=== PATIENT | female | born 1960 | race Caucasian/White ===

== ENCOUNTER 2017-11-30 13:00 | Inpatient (IN) ==
[2017-11-30 15:50] LABS: Appearance,Urine CLEAR; Bacteria,Urine 0 /hpf (0); Bilirubin,Urine NEG (NEG); Color,Urine STRAW; Glucose,Urine (UA) NEGATIVE (NEG); Leukocyte Esterase,Urine NEG /uL (NEG); Mucus,Urine FEW /hpf (0); Protein,Urine NEG (NEG); Specific Gravity,Urine 1.014 (1.000-1.035); Urine Amorphous Crystals FEW /hpf (0); Urine Blood 0.2 mg/dL (<0.03); Urine RBC 1 /hpf (0-1); Urine Squamous Epithelial Cell < 1 /hpf (0-4); Urine WBC 0 /hpf (0-4); Urobilinogen,Urine NEG (NEG)
[2017-11-30 17:19] LABS: Blood Urea Nitrogen 15 mg/dl (6-20)
[2017-11-30 17:40] LABS: Basophils # (Auto) 0 K/mcL (0.0-0.3); Basophils % (Auto) 0.8 % (0.0-2.0); Eosinophils # (Auto) 0.2 K/mcL (0.0-0.7); Granulocytes % (Auto) 54.2 % (38.0-78.0); Lymphocytes % (Auto) 36.2 % (15.5-49.0); Mean Cell Volume 84.8 fL (80.0-100.0); Monocytes # (Auto) 0.3 K/mcL (0.1-0.9); Monocytes % (Auto) 5.8 % (1.0-12.0); Platelet Count 247 K/mcL (140-440); RBC 4.71 M/mcL (4.00-5.20); Red Cell Distribution Width 15.1 % (11.5-14.5)
[2017-12-03] MEDS ORDERED: 0.9 % SODIUM CHLORIDE 9 ML, KETOROLAC 30 MG, ROPIVACAINE HCL/PF 49.5 ML, EPINEPHrine 0.... IJ SCH (07:00)
[2017-12-03] MEDS ORDERED: ceFAZolin 1 GM VIAL IV SCH (07:00)
[2017-12-03] MEDS ORDERED: PROPOFOL 200 MG/20 ML VIAL IV ONE (11:08)
[2017-12-03] MEDS ORDERED: ROPIVACAINE HCL/PF 20 ML VIAL IJ ONE (11:08)
[2017-12-03] MEDS ORDERED: KETAMINE 100 MG/ML ML IV ONE (11:08)
[2017-12-03] MEDS ORDERED: DEXAMETHASONE 10 MG/ML VIAL IV ONE (11:08)
[2017-12-03] MEDS ORDERED: ONDANSETRON 4 MG/2 ML VIAL IV ONE (11:08)
[2017-12-03] MEDS ORDERED: fentaNYL 250 MCG/5 ML VIAL IV ONE (11:08)
[2017-12-03] MEDS ORDERED: MIDAZOLAM 5 MG/5 ML VIAL IV ONE (11:08)
[2017-12-03] MEDS ORDERED: TRANEXAMIC ACID 1,000 MG/10 ML VIAL IV ONE (11:08)
[2017-12-03] MEDS ORDERED: LIDOCAINE HCL/PF 100 MG/5 ML SYRINGE IV ONE (11:08)
[2017-12-03] MEDS ORDERED: BISACODYL 10 MG SUPP.RECT PR PRN (12:47)
[2017-12-03] MEDS ORDERED: ONDANSETRON 4 MG/2 ML VIAL IV PRN ×2 (12:47→12:49)
[2017-12-03] MEDS ORDERED: POLYETHYLENE GLYCOL 3350 17 GM PACKET PO PRN (12:47)
[2017-12-03] MEDS ORDERED: TRANEXAMIC ACID 1,000 MG/10 ML VIAL IV SCH (12:47)
[2017-12-03] MEDS ORDERED: MAGNESIUM HYDROXIDE 30 ML ORAL.SUSP PO PRN (12:47)
[2017-12-03] MEDS ORDERED: FLEETS ADULT ENEMA PR PRN (12:47)
[2017-12-03] MEDS ORDERED: BENZOCAINE/MENTHOL 1 LOZENGE PO PRN (12:47)
[2017-12-03] MEDS ORDERED: ATROPINE SULFATE 0.4 MG/ML VIAL IV PRN (12:49)
[2017-12-03] MEDS ORDERED: IPRATROPIUM/ALBUTEROL 3 ML AMPUL.NEB NEB PRN ×2 (12:49→13:58)
[2017-12-03] MEDS ORDERED: NALOXONE HCL 0.4 MG/ML VIAL IV PRN (12:49)
[2017-12-03] MEDS ORDERED: ACETAMINOPHEN 1,000 MG/100 ML BOTTLE IV ONE (12:49)
[2017-12-03] MEDS ORDERED: METOPROLOL TARTRATE 5 MG/5 ML VIAL IV PRN (12:49)
[2017-12-03] MEDS ORDERED: diphenhydrAMINE 50 MG/ML VIAL IV PRN (12:49)
[2017-12-03] MEDS ORDERED: METHOCARBAMOL 1,000 MG/10 ML VIAL IV PRN (12:49)
[2017-12-03] MEDS ORDERED: ePHEDrine 50 MG/ML AMPUL IV PRN (12:49)
[2017-12-03] MEDS ORDERED: FLUMAZENIL 0.1 MG/ML ML IV PRN (12:49)
[2017-12-03] MEDS ORDERED: HYDROmorphone 2 MG/ML VIAL IV PRN ×2 (12:49→16:19)
[2017-12-03] MEDS ORDERED: PROMETHAZINE 25 MG/ML VIAL IV PRN (12:49)
[2017-12-03] MEDS ORDERED: LORazepam 1 MG TABLET PO PRN (12:52)
--- NOTE | 2017-12-03 12:59 | Brief Operative Note ---
Date of procedure: 12/03/17 Pre-op diagnosis: DJD right knee Eliceo Post-op diagnosis: same Procedure: R TKR ELICEO Grafts/Implants: Yes (triathlon knee) Anesthesia: GETA Findings: DJD right knee Complications: none Surgeon: Arturo Navarrete Binding Nicker: Gabriel Trevizo Estimated blood loss (cc): 100 Tourniquet Time (Minutes): 73 Specimens Removed/Pathology: none sent Condition: stable Disposition: PACU
[2017-12-03] MEDS ORDERED: LACTATED RINGERS 1,000 ML IV SCH (13:00)
[2017-12-03] MEDS ORDERED: GENTAMICIN SULFATE 800 MG/20 ML VIAL IR ONE (13:10)
[2017-12-03] MEDS: MEPERIDINE 25 MG/ML SYRINGE IV PRN ×2 (13:20→13:32)
[2017-12-03] MEDS: fentaNYL 100 MCG/2 ML VIAL IV PRN ×4 (13:35→13:54)
[2017-12-03] MEDS ORDERED: PROMETHAZINE 25 MG/ML VIAL IM PRN (13:58)
[2017-12-03] MEDS ORDERED: MEPERIDINE 50 MG/ML INJECTION IM PRN (13:58)
[2017-12-03] MEDS ORDERED: PROMETHAZINE 25 MG/ML VIAL ONE (14:07)
[2017-12-03] MEDS ORDERED: MEPERIDINE 50 MG/ML INJECTION ONE (14:07)
--- NOTE | 2017-12-03 14:39 | Operative Note ---
DATE OF OPERATION: 12/03/2017 PREOPERATIVE DIAGNOSIS: Degenerative joint disease of the right knee. POSTOPERATIVE DIAGNOSIS: Degenerative joint disease of the right knee. OPERATION: Right Eliceo total knee replacement (Triathlon). SURGEON: Arturo Navarrete MD ANALYZER SALES: Gabriel Trevizo PA-C ANESTHESIA: General done by Amando David CRNA. TOURNIQUET TIME: 73 minutes. ESTIMATED BLOOD LOSS: 100 mL SUMMARY OF PROCEDURE: General anesthesia was attained. The right leg was prepped and draped. A thigh-level tourniquet was put up. A midline incision was made from the quadriceps to the tibial tubercle. It was taken down to the muscle retinacular layer. A mid vastus approach was used. An oblique incision was made in the vastus for about an inch and then taking into the quadriceps about 2 fingerbreadths above the patella. This incision was then taken down into the quadriceps and around the medial retinaculum down to the medial aspect of the patellar tendon. The incision was deepened down to the level of the joints. A release was done of the medial soft tissues using a Fink. The anterior menisci were resected. The ACL was released. The patella was mobilized laterally. The two arrays were placed. Two stab incisions were made and the anteromedial femur four fingerbreadths above the patella. Blunt dissection was used to get down to the bone. The two array drill holes were made through the anterior cortex and partly in the posterior cortex and the 2 pins placed. The array was placed proximally. Distally, two stab incisions were made 15 mm apart, the 3.2 mm drill bit and the pins were placed. The distal array was placed as well. The robot was then used to locate the hip by rotating through the femoral head with the leg bent. The two reference pins were then placed, one into the femur and one into the tibia. A probe was then used to locate 40 points on the femur and then on the tibia. Using the robot guidance, the anterior, posterior and bevel cuts were made in the femur and the proximal cut was made in the tibia. At this point, the robot was removed. The femur size the robot prior to making the cuts was used to balance the knee in flexion and extension. The anterior, posterior, bevel cuts were made as noted above. The femur sized to a 2. This tibia sized to a 2 as well. The tibia was prepared for implantation by reaming and then broaching the tibial canal. The best combination of a full range of motion with stability was with an 11 mm polyethylene thickness. A congruent, but posterior cruciate retaining insert was used. The patella was everted. Its depth was 20 mm. It measured and resection was down to 12 mm. A 32 size patella covered the remaining bone well with minimal lateral bone prominence. The extra bone was resected. The bone surfaces were copiously irrigated. The knee was infiltrated throughout with a standard multimodal incision from the pharmacy for postoperative analgesia. The bone surfaces were vigorously irrigated and then dried. The components were cemented in. Excess cement was removed. No touch test showed a lateral release was indicated and therefore this was done with the Bovie. The tourniquet was let down. All bleeding points were coagulated. The vastus medialis and quadriceps as well as the medial retinaculum were closed with buried and mattress sutures of #2 FiberWire. The superficial closure was then done with a running locking Maxon. The subcutaneous tissue was closed with interrupted buried 2-0 Monocryl. The skin was closed with mik. A sterile compressive dressing was applied. The sponge and needle count was correct. The patient tolerated the procedure well and was taken to the recovery room in stable condition. TJF:[id number] Job ID: [id number] Doc ID: [id number] Arturo Navarrete MD
[2017-12-03] MEDS: 0.9 % SODIUM CHLORIDE 1,000 ML IV SCH (15:01)
[2017-12-03] MEDS: 0.9 % SODIUM CHLORIDE 10 ML SYRINGE IV SCH ×2 (15:03→21:54)
[2017-12-03] MEDS: GABAPENTIN 300 MG CAPSULE PO SCH ×2 (15:11→21:17)
[2017-12-03] MEDS: hydrOXYzine 25 MG TABLET PO SCH ×2 (15:11→21:18)
--- NOTE | 2017-12-03 15:16 | XRay Report ---
CLINICAL INFORMATION: Post-op total knee. COMPARISON: None. FINDINGS: Total knee prostheses is anatomically aligned. No osseous abnormality. Diffuse soft tissue swelling seen as expected IMPRESSION: Negative Interpreted and Authenticated by: Han Yee 12/03/17
[2017-12-03] MEDS: HYDROcodone/APAP 10/325MG TABLET PO PRN ×2 (16:03→21:18)
[2017-12-03] MEDS: ceFAZolin 1 GM VIAL IV SCH (18:56)
[2017-12-03] MEDS ORDERED: QUEtiapine 100 MG TABLET PO SCH (21:00)
[2017-12-03] MEDS ORDERED: SENNOSIDES 1 TABLET PO SCH (21:00)
[2017-12-03] MEDS: ASPIRIN 325 MG ENTERIC COATED TABLET PO SCH (21:17)
[2017-12-03] MEDS: oxyCODONE 10 MG TAB.ER.12H PO SCH (21:17)
[2017-12-03] MEDS: DOCUSATE SODIUM 100 MG CAPSULE PO SCH (21:18)
[2017-12-04] MEDS: 0.9 % SODIUM CHLORIDE 1,000 ML IV SCH ×2 (01:09→09:06)
[2017-12-04] MEDS: HYDROcodone/APAP 10/325MG TABLET PO PRN ×2 (01:27→05:41)
[2017-12-04] MEDS: ceFAZolin 1 GM VIAL IV SCH (02:17)
[2017-12-04] MEDS: 0.9 % SODIUM CHLORIDE 10 ML SYRINGE IV SCH (06:00)
[2017-12-04 07:04] LABS: Basophils # (Auto) 0 K/mcL (0.0-0.3); Basophils % (Auto) 0 % (0.0-2.0); Eosinophils # (Auto) 0 K/mcL (0.0-0.7); Eosinophils % (Auto) 0 % (0.0-7.0); Granulocytes % (Auto) 90.7 % (38.0-78.0); Lymphocytes # (Auto) 0.9 K/mcL (1.5-4.8); Lymphocytes % (Auto) 6.1 % (15.5-49.0); Mean Cell Volume 85.1 fL (80.0-100.0); Mean Corpuscular HGB Conc 32.6 g/dL (31.0-36.0); Mean Corpuscular Hemoglobin 27.8 pg (26.0-34.0); Monocytes # (Auto) 0.5 K/mcL (0.1-0.9); Monocytes % (Auto) 3.2 % (1.0-12.0); Platelet Count 234 K/mcL (140-440); RBC 3.59 M/mcL (4.00-5.20); Red Cell Distribution Width 15.2 % (11.5-14.5)
[2017-12-04] MEDS ORDERED: OMEPRAZOLE 20 MG CAPSULE PO SCH (07:30)
--- NOTE | 2017-12-04 07:57 | Discharge Summary ---
Providers - Providers Patient information: Note initiated : 12/04/17 at 7:55 am Service Date, if different from initiated Date: [] Patient: Valerie Garay 57 y/o F admitted on 12/03/17 for Right Total Knee Arthroplasty Eliceo. Chief Complaint: [] Date of admission: 12/03/17 Discharge date: 12/04/17 Attending physician: Arturo Navarrete Hospitalization Hospital course: stayed one day, no complications pain contro;;ed. Will go home on home PT Discharge diagnosis: Total knee replacement right Procedures: r TKR 12/03 Complications: None Exam - Exam Clean and dry: Yes Weight bearing status: full Ortho Discharge - TKA - Patient Instructions Diet: Regular Diet Total Knee Protocol: For Total Knee: Start ROM JOSUE with stationary bike or rocking chair. Work on gaining full extension of knee. Posterior dislocation precautions provided. Hip abductor strengthening and gait training instructions provided. Apply Cryocuff as instructed. - Follow Up Plan Disposition: Home, Self-Care Prognosis: Good Rehab Potential: Good I certify that the patient requires SNF services: No - Orders For Discharge Prescriptions: oxyCODONE HCL [Roxicodone] 10 mg PO Q6HP PRN #50 tablet PRN Reason: Pain Pending Studies Resuscitation Status Full Code Diet Regular Diet Start Ange Oct 1531 Aspirin (Ecotrin) 325 mg PO BID [facility] Last Admin: 12/03/17 21:17 Dose: 325 mg Docusate Sodium (Colace) 100 mg PO BID [facility] Last Admin: 12/03/17 21:18 Dose: 100 mg Gabapentin (Neurontin) 300 mg PO TID [facility] Last Admin: 12/03/17 21:17 Dose: 300 mg Admin: 12/03/17 15:11 Dose: 300 mg Hydromorphone HCl (Dilaudid) 0.5 - 2 mg IV Q2HP PRN PRN Reason: PAIN LEVEL > 6 Last Admin: 12/03/17 17:56 Dose: 0.5 mg Hydroxyzine HCl (Atarax) 50 mg PO TID [facility] Last Admin: 12/03/17 21:18 Dose: 50 mg Admin: 12/03/17 15:11 Dose: 50 mg Sodium Chloride (Sodium Chloride 0.9%) 1,000 mls @ 100 mls/hr IV .Q10H [facility] Last Admin: 12/04/17 01:09 Dose: 100 mls/hr Infusion: 12/04/17 01:01 Dose: 100 mls/hr Admin: 12/03/17 15:01 Dose: 100 mls/hr Lorazepam (Ativan) 1 - 2 mg PO DAILYP PRN PRN Reason: Anxiety Last Admin: 12/04/17 05:41 Dose: 1 mg Omeprazole (Prilosec) 40 mg PO ACB [facility] Last Admin: 12/04/17 06:55 Dose: 40 mg Oxycodone HCl (Oxycontin) 10 mg PO BID [facility] Stop: 12/04/17 21:01 Last Admin: 12/03/17 21:17 Dose: 10 mg Quetiapine Fumarate (Seroquel) 100 mg PO HS [facility] Last Admin: 12/03/17 21:17 Dose: 100 mg Senna (Senokot) 2 tab PO HS [facility] Last Admin: 12/03/17 21:18 Dose: 2 tab Sodium Chloride (Saline Flush) 10 ml IV Q8 [facility] Last Admin: 12/04/17 06:00 Dose: Not Given Admin: 12/03/17 21:54 Dose: Not Given Admin: 12/03/17 15:03 Dose: Not Given Shift Summary 12/04/17 04:38 Shift Summary by Yaya Whyte Addendum entered by Yaya Whyte 12/04/17 04:42: VS - WNL on R.A. - SPO2 has been low when asleep - O2 @ 2L PRN. She is A&O x4, calm, pleasant, & cooperative. Original Note: Pt rather somnolent early in the emelia. She has rested rather well tonight. Pt up AMB to & from BR - gait mod unsteady when up w/ FWW - CGA for safety. Voiding QS - PVR scan was 35ml @ 2135. RT knee nevaeh showing sm area shadow - otherwise dry & intact. Pt has declined cryo-cuff 2nd to the weight causing increased pain. CPM currently on @ 0-40 degrees. She has Hx back pain. Knee & back pain mod well controlled - last [place] 10 (2) PO given @ 0130 - Initialized on 12/04/17 04:38 - END OF NOTE
[2017-12-04] MEDS ORDERED: PARoxetine 20 MG TABLET PO SCH (09:00)
[2017-12-04] MEDS: GABAPENTIN 300 MG CAPSULE PO SCH (09:03)
[2017-12-04] MEDS: oxyCODONE 10 MG TAB.ER.12H PO SCH (09:04)
[2017-12-04] MEDS: hydrOXYzine 25 MG TABLET PO SCH (09:04)
[2017-12-04] MEDS: DOCUSATE SODIUM 100 MG CAPSULE PO SCH (09:04)
[2017-12-04] MEDS: oxyCODONE HCL 5 MG TABLET PO PRN ×2 (09:05→10:31)
[2017-12-04] MEDS: ASPIRIN 325 MG ENTERIC COATED TABLET PO SCH (09:06)
== END 2017-12-04 10:55 | disposition home or self-care (01) | DRG 470 ==
LOC: MEDSUR 12-03 08:20
PROVIDERS: ADMIT Orthopaedic Surgery Foot and Ankle Surgery; ATTEND Orthopaedic Surgery Foot and Ankle Surgery
CPT/HCPCS: 62322; 97161; C1713; C1776; J0131; J0171; J0690; J1100; J1170; J1580; J1885; J2001; J2175; J2250; J2405; J2550; J2795; J2800; J3010; J7030; J7050; J7120; J7620; J7620-GY

== ENCOUNTER 2017-12-31 09:14 | Observation (INO) ==
[2017-12-31] MEDS ORDERED: ACETAMINOPHEN 325 MG TABLET PO ONE (10:14)
[2017-12-31] MEDS ORDERED: ONDANSETRON 4 MG/2 ML VIAL IV ONE (10:14)
[2017-12-31] MEDS ORDERED: LACTATED RINGERS 1,000 ML IV ONE (10:14)
--- NOTE | 2017-12-31 10:16 | XRay Report ---
CLINICAL INFORMATION: Cough and fever COMPARISON: 08/04/2016 FINDINGS: Moderate cardiomegaly is unchanged. Mediastinum and pulmonary vessels are normal. Moderate patchy infiltrate in the right mid/lower lung has developed. Minimal patchy left lower lung. IMPRESSION: Moderate patchy infiltrate right mid and lower lung with small patchy infiltrate left lower lung. Moderate stable cardiomegaly - no evidence CHF Interpreted and Authenticated by: Han Yee 12/31/17
--- NOTE | 2017-12-31 10:17 | Emergency Department Note ---
General Adult HPI - General Chief complaint: Fever Stated complaint: Knee pain, fever Time Seen by Provider: 12/31/17 10:06 Source: EMS Mode of arrival: EMS Limitations: no limitations - History of Present Illness HPI Narrative: This patient began having pain and swelling in her right knee which underwent a total knee replacement [address] Navarrete. The symptoms started last evening. She also has a fever and cough with slight head congestion. - Related Data Home Medications Medication Instructions Recorded Confirmed LORazepam [Ativan] 1 - 2 mg PO DAILYP PRN 11/30/17 12/03/17 Omeprazole [PriLOSEC] 40 mg PO ACB 11/30/17 12/03/17 PARoxetine HCL [Paxil] 40 mg PO DAILY 11/30/17 12/03/17 QUEtiapine [SEROquel] 100 mg PO HS 11/30/17 12/03/17 hydrOXYzine HCL [Hydroxyzine HCl] 50 mg PO TID 11/30/17 12/03/17 Previous Rx's Medication Instructions Recorded gabapentin 300 mg capsule 300 mg PO TID #90 cap 05/22/16 Aspirin 81 mg PO BID #60 tab.chew 12/04/17 oxyCODONE HCL [Roxicodone] 10 mg PO Q6HP PRN #50 tablet 12/04/17 HYDROmorphone HCL [Dilaudid] 4 mg PO Q8HP PRN #20 tab 12/07/17 Allergies Allergy/AdvReac Type Severity Reaction Status Date / Time aspirin AdvReac Mild Gastrointestinal Verified 12/31/17 09:14 Upset ibuprofen AdvReac Mild Gastrointestinal Verified 12/31/17 09:14 Upset morphine AdvReac Mild Other Verified 12/31/17 09:14 tramadol [From Ultram] AdvReac Mild Gastrointestinal Verified 12/31/17 09:14 Upset Review of Systems All systems ED: reviewed and negative except as stated. Past Medical History - Past Medical History PMFSH Narrative: Medical History Drug overdose (Acute) Chronic back pain (Chronic) Stomach ulcer (Acute) Migraine (Acute) Insomnia (Acute) Fractured bone (Acute) Depressive disorder (Chronic) Intestinal disorder (Acute) Anxiety disorder (Acute) Acid reflux (Acute) Basal cell carcinoma (Acute) Past Surgical History Hx of surgical procedure (Resolved) History of surgery on arm (Resolved) Status post Mohs surgery (Resolved 11/21/14) Family History Father Cerebrovascular accident (CVA) Dementia Family history of arthritis Essential hypertension Acute myocardial infarction Disorder of thyroid Aunt Diabetes mellitus Sister Migraine Medical history: Reports: coronary artery disease, GERD, hypertension, migraine Psychiatric history: Reports: anxiety, depression, other (Borderline personality disorder) Surgical history ED: Reports: angioplasty/stent, knee replacement, other (right wrist) - Social History smoking status: Current every day smoker Alcohol use: Reports: None Drug use: Reports: none Physical Exam Limitations: no limitations General appearance: alert Head: atraumatic, normocephalic Eye: Present: normal appearance ENT: normal exam, normal oropharynx, mucous membranes moist Neck: Present: normal inspection Chest: Present: normal inspection Respiratory: Present: normal lung sounds bilaterally Cardiovascular: Present: regular rate, normal rhythm, normal heart sounds Abdominal: Present: soft. Absent: distention, tenderness Neurological: Present: alert Psychiatric: Present: normal affect, normal mood Skin: Present: warm, dry, intact Course Vital Signs Temperature 98.5 F 12/31/17 09:14 Pulse Rate 103 H 12/31/17 09:14 Respiratory Rate 16 12/31/17 09:14 Blood Pressure 156/70 12/31/17 09:14 Pulse Oximetry (%) 95 12/31/17 09:14 Temperature 98.5 F 12/31/17 09:14 Pulse Rate 85 12/31/17 12:04 Respiratory Rate 16 12/31/17 09:14 Blood Pressure 149/80 12/31/17 12:04 Pulse Oximetry (%) 96 12/31/17 12:04 Medical Decision Making - [facility] Narrative Medical decision making narrative: Patient's chest x-ray is read as showing pneumonia and there is also concern that she might have a septic right knee prosthesis. Patient will be admitted to the hospital by Dr. Lai and consult with Ortho will be obtained. We did do cultures and will treat her with Rocephin and Levaquin to start with. - Lab Data Lab results reviewed: Yes I reviewed the patient's lab results. Result diagrams: 12/31/17 09:30 12/31/17 09:30 Lab Results 12/31/17 12/31/17 12/31/17 Range/Units 09:30 09:30 09:30 WBC 4.8 (4.5-11.0) K/mcL RBC 3.96 L (4.00-5.20) M/mcL Hgb 10.4 L (12.0-15.0) g/dL Hct 31.8 L (36.0-48.0) % MCV 80.4 (80.0-100.0) fL MCH 26.2 (26.0-34.0) pg MCHC 32.6 (31.0-36.0) g/dL RDW 17.9 H (11.5-14.5) % Plt Count 273 (140-440) K/mcL MPV 9.6 (7.4-10.4) fL Gran % 86.3 H (38.0-78.0) % Lymph % (Auto) 9.4 L (15.5-49.0) % [place] % (Auto) 4.1 (1.0-12.0) % Eos % (Auto) 0.1 (0.0-7.0) % Baso % (Auto) 0.1 (0.0-2.0) % Gran # 4.1 (1.8-8.0) K/mcL Lymph # (Auto) 0.5 L (1.5-4.8) K/mcL [place] # (Auto) 0.2 (0.1-0.9) K/mcL Eos # (Auto) 0 (0.0-0.7) K/mcL Baso # (Auto) 0 (0.0-0.3) K/mcL ESR (0-20) mm/hr VBG Lactic Acid 1.3 (0.5-2.2) mmol/L Sodium 136 (133-145) mmol/L Potassium 3.9 (3.3-5.1) mmol/L Chloride 98 (96-108) mmol/L Carbon Dioxide 24 (22-30) mmol/L Anion Gap 14.0 (8-16) BUN 4 L (6-20) mg/dl Creatinine 0.6 (0.6-1.1) mg/dl GFR Calculation 103 Glucose 126 H (70-105) mg/dL Calcium 8.7 (8.6-10.4) mg/dl Total Bilirubin 0.4 (0.0-1.0) mg/dL AST 12 (0-37) U/l ALT 6 (0-40) U/l Alkaline Phosphatase 196 H (39-117) U/L C-React Prot High Sens (1.0-3.0) mg/L Total Protein 6.5 (5.9-8.4) gm/dL Albumin 3.8 (3.2-5.2) gm/dL Globulin 2.7 (2.2-3.7) gm/dL Albumin/Globulin Ratio 1.4 (1.0-2.3) Urine Color Urine Appearance Urine pH (5.0-9.0) Ur Specific [place] (1.003-1.030) Urine Protein (NEG) mg/dL Urine Glucose (UA) (NEG) mg/dL Urine Ketones (NEG) mg/dL Urine Occult Blood (<5) nikunj/mcL Urine Nitrate (NEG) Urine Bilirubin (NEG) mg/dL Urine Urobilinogen (NEG) mg/dL Ur Leukocyte Esterase (NEG) /uL Urine RBC (0-1) /hpf Urine WBC (0-4) /hpf Ur Squamous Epith Cells (0-4) /hpf Urine Bacteria (0) /hpf Ur Culture Indicated? 12/31/17 12/31/17 12/31/17 Range/Units 09:30 09:30 11:09 WBC (4.5-11.0) K/mcL RBC (4.00-5.20) M/mcL Hgb (12.0-15.0) g/dL Hct (36.0-48.0) % MCV (80.0-100.0) fL MCH (26.0-34.0) pg MCHC (31.0-36.0) g/dL RDW (11.5-14.5) % Plt Count (140-440) K/mcL MPV (7.4-10.4) fL Gran % (38.0-78.0) % Lymph % (Auto) (15.5-49.0) % [place] % (Auto) (1.0-12.0) % Eos % (Auto) (0.0-7.0) % Baso % (Auto) (0.0-2.0) % Gran # (1.8-8.0) K/mcL Lymph # (Auto) (1.5-4.8) K/mcL [place] # (Auto) (0.1-0.9) K/mcL Eos # (Auto) (0.0-0.7) K/mcL Baso # (Auto) (0.0-0.3) K/mcL ESR 34 H (0-20) mm/hr VBG Lactic Acid (0.5-2.2) mmol/L Sodium (133-145) mmol/L Potassium (3.3-5.1) mmol/L Chloride (96-108) mmol/L Carbon Dioxide (22-30) mmol/L Anion Gap (8-16) BUN (6-20) mg/dl Creatinine (0.6-1.1) mg/dl GFR Calculation Glucose (70-105) mg/dL Calcium (8.6-10.4) mg/dl Total Bilirubin (0.0-1.0) mg/dL AST (0-37) U/l ALT (0-40) U/l Alkaline Phosphatase (39-117) U/L C-React Prot High Sens 46.1 H (1.0-3.0) mg/L Total Protein (5.9-8.4) gm/dL Albumin (3.2-5.2) gm/dL Globulin (2.2-3.7) gm/dL Albumin/Globulin Ratio (1.0-2.3) Urine Color Yellow Urine Appearance Clear Urine pH 8.5 (5.0-9.0) Ur Specific [place] 1.020 (1.003-1.030) Urine Protein 30 (1+) (NEG) mg/dL Urine Glucose (UA) Norm (NEG) mg/dL Urine Ketones Neg (NEG) mg/dL Urine Occult Blood 1+ (small) A (<5) nikunj/mcL Urine Nitrate Neg (NEG) Urine Bilirubin Neg (NEG) mg/dL Urine Urobilinogen Norm (NEG) mg/dL Ur Leukocyte Esterase Neg (NEG) /uL Urine RBC 3 H (0-1) /hpf Urine WBC 1 (0-4) /hpf Ur Squamous Epith Cells 1 (0-4) /hpf Urine Bacteria 0 (0) /hpf Ur Culture Indicated? No - Radiology Data Radiology results reviewed: Yes I reviewed the patient's radiology results. Disposition Pt seen by CATHETER FINISHER AND INSPECTOR/PA only: No Clinical Impression: Community acquired pneumonia, Septic arthritis of knee, right Disposition: Xfer As Inpt ([facility]) Condition: Good Referrals: Maycol Toledo [Primary Care Provider] - Time of Disposition: 12:36
[2017-12-31 10:18] LABS: Basophils # (Auto) 0 K/mcL (0.0-0.3); Basophils % (Auto) 0.1 % (0.0-2.0); Eosinophils # (Auto) 0 K/mcL (0.0-0.7); Eosinophils % (Auto) 0.1 % (0.0-7.0); Granulocytes % (Auto) 86.3 % (38.0-78.0); Lymphocytes # (Auto) 0.5 K/mcL (1.5-4.8); Lymphocytes % (Auto) 9.4 % (15.5-49.0); Mean Cell Volume 80.4 fL (80.0-100.0); Mean Corpuscular HGB Conc 32.6 g/dL (31.0-36.0); Mean Corpuscular Hemoglobin 26.2 pg (26.0-34.0); Monocytes # (Auto) 0.2 K/mcL (0.1-0.9); Monocytes % (Auto) 4.1 % (1.0-12.0); Platelet Count 273 K/mcL (140-440); RBC 3.96 M/mcL (4.00-5.20); Red Cell Distribution Width 17.9 % (11.5-14.5)
[2017-12-31] MEDS: HYDROmorphone 2 MG/ML VIAL IV PRN ×3 (10:24→13:24)
--- NOTE | 2017-12-31 10:26 | XRay Report ---
CLINICAL INFORMATION: knee pain COMPARISON: None. FINDINGS: Total knee prostheses is anatomically aligned without loosening or infection. No osseous abnormality. Moderate suprapatellar effusion noted and also prepatellar soft tissue swelling IMPRESSION: Moderate suprapatellar effusion and peripatellar soft tissue swelling. Consider: Aspiration Interpreted and Authenticated by: Han Yee 12/31/17
[2017-12-31 10:36] LABS: ALT/SGPT 6 U/l (0-40); Albumin 3.8 gm/dL (3.2-5.2); Albumin/Globulin Ratio 1.4 (1.0-2.3); Alkaline Phosphatase 196 U/L (39-117); Blood Urea Nitrogen 4 mg/dl (6-20)
[2017-12-31] MEDS ORDERED: LEVOFLOXACIN 750 MG/150 ML BAG IV ONE (10:44)
[2017-12-31] MEDS ORDERED: cefTRIAXone 1 GM VIAL IV ONE (10:44)
[2017-12-31 11:47] LABS: Appearance,Urine CLEAR; Bilirubin,Urine NEG (NEG); Color,Urine YELLOW; Glucose,Urine (UA) NORM (NEG); Leukocyte Esterase,Urine NEG /uL (NEG); PH,Urine 8.5 (5.0-9.0); Protein,Urine 30 (1+) mg/dL (NEG); Urine Blood 1+ (SMALL) ery/mcL (<5); Urobilinogen,Urine NORM (NEG)
[2017-12-31 11:58] LABS: Bacteria,Urine 0 /hpf (0); Urine RBC 3 /hpf (0-1); Urine Squamous Epithelial Cell 1 /hpf (0-4); Urine WBC 1 /hpf (0-4)
[2017-12-31] MEDS ORDERED: HYDROmorphone 2 MG/ML VIAL IV PRN (13:45)
[2017-12-31] MEDS ORDERED: NALOXONE HCL 0.4 MG/ML VIAL IV PRN (13:45)
[2017-12-31] MEDS ORDERED: oxyCODONE HCL 5 MG TABLET PO PRN (13:45)
[2017-12-31] MEDS ORDERED: GABAPENTIN 300 MG CAPSULE PO PRN (13:45)
[2017-12-31] MEDS ORDERED: FLEETS ADULT ENEMA PR PRN (13:45)
[2017-12-31] MEDS ORDERED: BISACODYL 10 MG SUPP.RECT PR PRN (13:45)
[2017-12-31] MEDS ORDERED: ALBUTEROL SULFATE 2.5 MG/3 ML NEBULIZER NEB PRN (13:45)
[2017-12-31] MEDS ORDERED: ONDANSETRON 4 MG/2 ML VIAL IV PRN (13:45)
[2017-12-31] MEDS: LORazepam 1 MG TABLET PO PRN ×2 (14:34→21:40)
[2017-12-31] MEDS: hydrOXYzine 25 MG TABLET PO SCH ×2 (14:34→21:38)
[2017-12-31] MEDS: 0.9 % SODIUM CHLORIDE 10 ML SYRINGE IV SCH ×2 (14:34→21:40)
[2017-12-31] MEDS: oxyCODONE HCL 5 MG TABLET PO PRN (14:34)
[2017-12-31] MEDS ORDERED: NICOTINE 21 MG PATCH TOPICAL ONE (15:38)
--- NOTE | 2017-12-31 15:53 | Internal Med History&Physical ---
Medical - H&P: HPI Patient information: Note initiated : 12/31/17 at 3:43 pm Service Date, if different from initiated Date: [] Patient: Valerie Garay a 57 y/o F admitted on 12/31/17 for Knee Pain, Fever. Chief Complaint: [] History of present illness: Ms. Garay is a 57 year old F with history of multiple medical problems comes to the ER today for evaluation of pain in her right knee. The pain started approximately 2 days ago, is severe in nature sharp and throbbing. The patient had knee replacement surgery done approximately [address] Navarrete. The patient noted that initially she felt that the knee was getting better after surgery however then the pain started. Pain got suddenly worse 2 days ago. She noticed a little bit of pus coming from an open wound yesterday. She is also been suffering from some dizziness chills and subjective sensation of fever. The patient has a history of chronic cough. She denies any significant change in her cough symptoms. She does have shortness of breath and some chest tightness which she attributes to her smoking. Given that the pain was was getting worse and the patient was having shortness of breath she decided to come to the emergency room for further evaluation. In the emergency room on presentation patient was afebrile temperature 98.5, heart rate 103, blood pressure normal 136/62 and she was saturating 99% on room air. Labs showed a normal WBC count at 4.8, hemoglobin 10.4, platelets 273. Chemistry unremarkable, ESR 34, lactic acid 1.3, HR CRP 46. UA showed a few RBCs, chest x-ray shows pneumonia in the right middle lobe and right lower lobe, knee x-ray shows effusion in the right knee. Blood cultures were sent IV antibiotics given in the ED and the patient was presented for admission. The ED physician was hesitant to tap the knee was trying to get in touch with Ortho. However patient did get antibiotics. I had ordered radiology guided arthrocentesis, we will follow-up the results but this is after the patient has received Rocephin and levofloxacin. Patient is being admitted to the hospital for possible septic arthritis as well as pneumonia. Review of systems: CONSTITUTIONAL: No weight loss, present fever, chills, weakness and fatigue. HEENT: Eyes: No visual loss, blurred vision, double vision or yellow sclerae. Ears, Nose, Throat: No hearing loss, sneezing, congestion, runny nose or sore throat. SKIN: No rash or itching. CARDIOVASCULAR: No chest pain, some chest pressure present, no palpitations or edema. RESPIRATORY: present shortness of breath, chronic cough GASTROINTESTINAL: No nausea, vomiting or diarrhea or constipation. No abdominal pain or blood in stools No Lydia. GENITOURINARY: Denies Burning on urination. Blood in urine, or foul smelling urine NEUROLOGICAL: No headache, present dizziness,no syncope, paralysis, tremors, numbness or tingling in the extremities. No change in bowel or bladder control. MUSCULOSKELETAL: No muscle, back pain, joint pain or stiffness. Right knee painful and swollen. HEMATOLOGIC: No bleeding or bruising. No enlarged nodes PSYCHIATRIC: present depression and anxiety. ENDOCRINOLOGIC: No reports of sweating, cold or heat intolerance. No polyuria or polydipsia. ALLERGIES: No hives, eczema or rhinitis. Skin: No rash, no jaundice, cyanosis or pallor. Medical - H&P: [facility] Medical history: Medical History Drug overdose (Acute) Chronic back pain (Chronic) Stomach ulcer (Acute) Migraine (Acute) Insomnia (Acute) Fractured bone (Acute) Depressive disorder (Chronic) Intestinal disorder (Acute) Anxiety disorder (Acute) Acid reflux (Acute) Basal cell carcinoma (Acute) Surgical history: Past Surgical History Hx of surgical procedure (Resolved) History of surgery on arm (Resolved) Status post Mohs surgery (Resolved 11/21/14) Pertinent family history: Family History Father Cerebrovascular accident (CVA) Dementia Family history of arthritis Essential hypertension Acute myocardial infarction Disorder of thyroid Aunt Diabetes mellitus Sister Migraine Medical - H&P: Meds Home Medications Medication Instructions Recorded Confirmed Type LORazepam [Ativan] 0.5 - 1 tablet PO BIDP PRN 11/30/17 12/31/17 History Omeprazole [PriLOSEC] 40 mg PO BID 11/30/17 12/31/17 History PARoxetine HCL [Paxil] 40 mg PO DAILY 11/30/17 12/31/17 History QUEtiapine [SEROquel] 100 mg PO HS 11/30/17 12/31/17 History hydrOXYzine HCL [Hydroxyzine HCl] 50 mg PO TID PRN 11/30/17 12/31/17 History Aspirin 81 mg PO BID #60 tab.chew 12/04/17 12/31/17 Rx oxyCODONE HCL [Roxicodone] 10 mg PO Q6HP PRN #50 tablet 12/04/17 12/31/17 Rx Gabapentin [Neurontin] 300 mg PO QIDP 12/31/17 12/31/17 History HYDROcodone/APAP 10/325MG [[place] 1 - 2 tab PO Q4-6HP PRN 12/31/17 12/31/17 History 10-325Mg] Methocarbamol [Robaxin-750] 750 mg PO QIDP PRN 12/31/17 12/31/17 History Allergies Allergy/AdvReac Type Severity Reaction Status Date / Time aspirin AdvReac Mild Gastrointestinal Verified 12/31/17 09:14 Upset ibuprofen AdvReac Mild Gastrointestinal Verified 12/31/17 09:14 Upset morphine AdvReac Mild Other Verified 12/31/17 09:14 tramadol [From Ultram] AdvReac Mild Gastrointestinal Verified 12/31/17 09:14 Upset Medical - H&P: Exam - Constitutional Vitals: Temp Pulse Resp BP Pulse Ox 96.9 F L 89 16 144/79 90 12/31/17 14:33 12/31/17 14:33 12/31/17 14:33 12/31/17 14:33 12/31/17 14:33 Exam: GENERAL: The patient is a well-developed, well-nourished in no apparent distress. Is alert and oriented x3. VITAL SIGNS: Reviewed and as noted elsewhere. HEENT: Head is normocephalic and atraumatic. Extraocular muscles are intact. Pupils are equal, round, and reactive to light. Nares appeared normal. Mouth appears any without lesions. Mucous membranes are moist. NECK: Normal to inspection, Supple, No lymphadenopathy or thyromegaly. LUNGS: Air entry equal on both sides, no wheezing, crackles or rhonchi noted. No accessory muscles of respiration HEART: Regular rate and rhythm normal, S1 and S2 heard, no Gallop, S3 or Rub Noted, No Gross murmur heard. ABDOMEN: Soft, nontender, and nondistended. Positive bowel sounds. No hepatosplenomegaly was noted. EXTREMITIES: No cyanosis, clubbing, rash, lesions or edema. Right knee mildline inscision, open ulcer 0.5 x 1 cms, mild erythema, effusion present, increased warmth present NEUROLOGIC: Cranial nerves II through XII are grossly intact. Motor and Sensory System Grossly Intact PSYCHIATRIC: Normal affect, Normal Mood. Appropriate Behavior. SKIN: No ulceration or wounds noted, No jaundice, No rash noted. Medical - H&P: Reslt - Labs CBC & Chem 7: 12/31/17 09:30 12/31/17 09:30 Labs: Short CBC 12/31/17 Range/Units 09:30 WBC 4.8 (4.5-11.0) K/mcL Hgb 10.4 L (12.0-15.0) g/dL Hct 31.8 L (36.0-48.0) % Plt Count 273 (140-440) K/mcL BMP 12/31/17 09:30 Sodium 136 Potassium 3.9 Chloride 98 Carbon Dioxide 24 BUN 4 L Creatinine 0.6 Glucose 126 H Calcium 8.7 Liver Function 12/31/17 Range/Units 09:30 Total Bilirubin 0.4 (0.0-1.0) mg/dL AST 12 (0-37) U/l ALT 6 (0-40) U/l Alkaline Phosphatase 196 H (39-117) U/L Albumin 3.8 (3.2-5.2) gm/dL Urine 12/31/17 Range/Units 11:09 Urine Color Yellow Urine Appearance Clear Urine pH 8.5 (5.0-9.0) Ur Specific [place] 1.020 (1.003-1.030) Urine Protein 30 (1+) (NEG) mg/dL Urine Glucose (UA) Norm (NEG) mg/dL Medical - H&P: A/P - Narrative A/P Narrative: A/P Pneumonia, health care associated- noted on X ray chest, clinically has some cough and shortness of breath, on levofloxacin for now. check MRSA swab, Right knee Septic Arthritis- Suspected, cultures done after antibiotic, may not be reliable, but I am hoping that cell count will help us guide treatment. Will review results Dr Navarrete consulted from ER. WIll get ID onboard if patient has confirmed septic arthritis. Anxiety/ Depression- Follows weekly with Q, resume home medications Obesity outpatient follow up Tobacco abuse- Educated, nicotine patch while inpatient. DVT hep sq Full code Regular Diet Social History - Social History marital status: - Tobacco smoking status: Current every day smoker - Alcohol alcohol intake frequency: does not drink - Substance use substance use type: marijuana
--- NOTE | 2017-12-31 16:38 | Ultrasound Report ---
CLINICAL INFORMATION: right knee aspiration TECHNIQUE: Procedure and risks including possibility of bleeding, infection and inadequate fluid sampling were explained to the patient. She understood and wished to proceed. Moderate fluid in the lateral patellofemoral joint was ultrasound localized marked, prepped and locally anesthetized 1% lidocaine using a 25-gauge needle. An 18-gauge spinal needle was advanced into the fluid under sonographic guidance and approximately 8 cc of serosanguineous joint fluid was aspirated and sent for Gram stain culture and sensitivity. Unfortunately, the entire fluid collection cannot be aspirated. Needle was then removed. Procedure scanning shows no hemorrhage or other complication IMPRESSION: Successful percutaneous aspiration of the patellofemoral joint yielding 8 cc of serosanguineous fluid. This was sent to laboratory for requested studies. No apparent complication Interpreted and Authenticated by: Han Yee 12/31/17
[2017-12-31] MEDS: OMEPRAZOLE 20 MG CAPSULE PO SCH (17:33)
[2017-12-31] MEDS: ACETAMINOPHEN 325 MG TABLET PO PRN (17:39)
[2017-12-31 19:21] LABS: Appearance,Synovial Fluid CLOUDY; Color,Synovial Fluid RED
[2017-12-31 20:18] LABS: Lymphocytes,Synovial Fluid 17 %; Neutrophils,Synovial Fluid 52 % (0-25); Other Cells,Synovial Fluid 31 %
[2017-12-31 20:35] LABS: Crystals,Body Fluid CA PYROPHOSPHATE (NONE SEEN)
[2017-12-31 20:39] LABS: Glucose,Synovial Fluid 31 mg/dL
[2017-12-31] MEDS ORDERED: QUEtiapine 100 MG TABLET PO SCH (21:00)
[2017-12-31] MEDS ORDERED: SENNOSIDES 1 TABLET PO SCH (21:00)
[2017-12-31] MEDS: ASPIRIN 81 MG TAB.CHEW PO SCH (21:38)
[2017-12-31] MEDS: HEPARIN 5,000 UNIT/ML VIAL SQ SCH (21:38)
[2017-12-31] MEDS: risperiDONE 1 MG TABLET PO SCH (21:39)
[2018-01-01] MEDS: oxyCODONE HCL 5 MG TABLET PO PRN ×2 (00:15→06:42)
[2018-01-01] MEDS: ACETAMINOPHEN 325 MG TABLET PO PRN ×2 (00:16→06:42)
[2018-01-01] MEDS: 0.9 % SODIUM CHLORIDE 10 ML SYRINGE IV SCH ×2 (05:20→13:55)
[2018-01-01] MEDS: OMEPRAZOLE 20 MG CAPSULE PO SCH (06:42)
[2018-01-01] MEDS: hydrOXYzine 25 MG TABLET PO SCH (08:20)
[2018-01-01] MEDS: ASPIRIN 81 MG TAB.CHEW PO SCH (08:20)
[2018-01-01] MEDS: LORazepam 1 MG TABLET PO PRN (08:20)
[2018-01-01] MEDS: risperiDONE 1 MG TABLET PO SCH (08:21)
[2018-01-01] MEDS: HEPARIN 5,000 UNIT/ML VIAL SQ SCH (08:21)
[2018-01-01] MEDS ORDERED: PARoxetine 20 MG TABLET PO SCH (09:00)
[2018-01-01] MEDS ORDERED: LEVOFLOXACIN 750 MG/150 ML BAG IV SCH (09:00)
[2018-01-01 09:28] LABS: Basophils # (Auto) 0 K/mcL (0.0-0.3); Basophils % (Auto) 0.2 % (0.0-2.0); Eosinophils # (Auto) 0 K/mcL (0.0-0.7); Eosinophils % (Auto) 0.3 % (0.0-7.0); Granulocytes % (Auto) 67.6 % (38.0-78.0); Lymphocytes # (Auto) 0.8 K/mcL (1.5-4.8); Lymphocytes % (Auto) 24.4 % (15.5-49.0); Mean Corpuscular HGB Conc 32.6 g/dL (31.0-36.0); Mean Corpuscular Hemoglobin 26.4 pg (26.0-34.0); Monocytes # (Auto) 0.2 K/mcL (0.1-0.9); Monocytes % (Auto) 7.5 % (1.0-12.0); Platelet Count 241 K/mcL (140-440); Red Cell Distribution Width 17.8 % (11.5-14.5)
[2018-01-01] MEDS ORDERED: LEVOFLOXACIN 750 MG/150 ML BAG IV ONE (09:30)
[2018-01-01 09:58] LABS: ALT/SGPT < 5 U/l (0-40); Albumin 3.5 gm/dL (3.2-5.2); Albumin/Globulin Ratio 1.3 (1.0-2.3); Alkaline Phosphatase 168 U/L (39-117); Bilirubin,Direct < 0.2 mg/dL (0.0-0.3); Blood Urea Nitrogen 5 mg/dl (6-20); Gamma Glutamyl Transpeptidase 72 U/L (5-36); Uric Acid 4.8 mg/dL (2.5-8.0)
[2018-01-01] MEDS ORDERED: NICOTINE 21 MG PATCH TOPICAL SCH (10:00)
[2018-01-01] MEDS ORDERED: oxyCODONE/APAP 10/325MG TABLET PO PRN (10:36)
--- NOTE | 2018-01-01 10:41 | Orthopedic Consult Note ---
History of Present Illness - HPI Patient information: Note initiated : 01/01/18 at 10:39 am Service Date, if different from initiated Date: [] Patient: Valerie Garay 57 y/o F admitted on 12/31/17 for Knee Pain, Fever/ Right Knee Septic Arthritis, PNA. Chief Complaint: [] Consult date: 01/01/18 Requesting physician: Jorge Lai History of present illness: r knee pain, r/o postop infection Review of Systems Musculoskeletal: joint swelling, limited range of motion, stiffness (5 mm deiscence mid wound, superficial) Medications and Allergies Home Medications Medication Instructions Recorded Confirmed Type LORazepam [Ativan] 0.5 - 1 tablet PO BIDP PRN 11/30/17 12/31/17 History Omeprazole [PriLOSEC] 40 mg PO BID 11/30/17 12/31/17 History PARoxetine HCL [Paxil] 40 mg PO DAILY 11/30/17 12/31/17 History QUEtiapine [SEROquel] 100 mg PO HS 11/30/17 12/31/17 History hydrOXYzine HCL [Hydroxyzine HCl] 50 mg PO TID PRN 11/30/17 12/31/17 History Aspirin 81 mg PO BID #60 tab.chew 12/04/17 12/31/17 Rx oxyCODONE HCL [Roxicodone] 10 mg PO Q6HP PRN #50 tablet 12/04/17 12/31/17 Rx Gabapentin [Neurontin] 300 mg PO QIDP 12/31/17 12/31/17 History HYDROcodone/APAP 10/325MG [[place] 1 - 2 tab PO Q4-6HP PRN 12/31/17 12/31/17 History 10-325Mg] Methocarbamol [Robaxin-750] 750 mg PO QIDP PRN 12/31/17 12/31/17 History Allergies Allergy/AdvReac Type Severity Reaction Status Date / Time aspirin AdvReac Mild Gastrointestinal Verified 12/31/17 09:14 Upset ibuprofen AdvReac Mild Gastrointestinal Verified 12/31/17 09:14 Upset morphine AdvReac Mild Other Verified 12/31/17 09:14 tramadol [From Ultram] AdvReac Mild Gastrointestinal Verified 12/31/17 09:14 Upset Physical Examination - Knee right Effusion grade: grade 1 Valgus alignment in stance: 5 degrees Tenderness with palpation: lateral Pain: with flexion Full ROM: yes (0-110) Strength: extension: 4/5 Patella exam: normal Assessment and Plan (1) Postoperative pain Status: Acute - Narrative A/P Narrative: aspitration neg for deep onfection. small area not healed. Syill using tobacco. Recommend silvasorb, which was started, and smoking cessation. wound recheck 7- 20-days
--- NOTE | 2018-01-01 13:19 | Discharge Summary ---
Medical - DS: Prov Patient information: Note initiated : 01/01/18 at 1:06 pm Service Date, if different from initiated Date: [] Patient: Valerie Garay 57 y/o F admitted on 12/31/17 for Knee Pain, Fever/ Right Knee Septic Arthritis, PNA. Chief Complaint: [] Date of admission: 12/31/17 13:38 Discharge date: 01/01/18 Primary care physician: Maycol Toledo Admitting clinician: Jorge Lai Consults: 12/31/17 Consult to Physician [CONS] Stat Comment: Consulting Provider: Arturo Navarrete Reason For Exam: Physician to Consult Consult to Physician [CONS] Stat Comment: Consulting Provider: Jorge Lai Reason For Exam: Physician to Consult Discharging clinician: Jorge Lai Medical - DS: Meds - Discharge Medications Prescriptions: Levofloxacin [Levaquin] 750 mg PO DAILY #3 tab Naproxen Sodium [Naproxen Sodium Ds] 550 mg PO BID #28 tab oxyCODONE/APAP [Percocet 10-325Mg] 1 tab PO Q4-6HP PRN #40 tab PRN Reason: Pain Level 3-6 Active and Home Medications: Home Medications LORazepam [Ativan] 0.5 - 1 tablet PO BIDP PRN 11/30/17 [History Confirmed Last Taken 12/06/17 12:00] Omeprazole [PriLOSEC] 40 mg PO BID 11/30/17 [History Confirmed 12/31/17 Last Taken 12/06/17] PARoxetine HCL [Paxil] 40 mg PO DAILY 11/30/17 [History Confirmed 12/31/17 Last Taken 12/06/17] QUEtiapine [SEROquel] 100 mg PO HS 11/30/17 [History Confirmed 12/31/17 Last Taken 12/06/17] hydrOXYzine HCL [Hydroxyzine HCl] 50 mg PO TID PRN 11/30/17 [History Confirmed 12/31/17 Last Taken 12/06/17] Aspirin 81 mg PO BID #60 tab.chew 12/04/17 [Rx Confirmed 12/31/17 Last Taken 09/16] oxyCODONE HCL [Roxicodone] 10 mg PO Q6HP PRN #50 tablet 12/04/17 [Rx Confirmed 12/31/17 Last Taken 12/06/17 13:00] Gabapentin [Neurontin] 300 mg PO QIDP 12/31/17 [History Confirmed 12/31/17 Last Taken Unknown] HYDROcodone/APAP 10/325MG [[place] 10-325Mg] 1 - 2 tab PO Q4-6HP PRN 12/31/17 [ History Confirmed 12/31/17 Last Taken Unknown] Methocarbamol [Robaxin-750] 750 mg PO QIDP PRN 12/31/17 [History Confirmed 12/31 Last Taken Unknown] oxyCODONE/APAP [Percocet 10-325Mg] 1 tab PO Q4-6HP PRN #40 tab 01/01/18 [Rx Last Taken Unknown] Medical - DS: Hosp Hospital course: Ms. Garay is a 57 year old F with history of multiple medical problems comes to the ER for evaluation of pain in her right knee. The pain started approximately 2 days ago, is severe in nature sharp and throbbing. The patient had knee replacement surgery done approximately [address] Navarrete. The patient noted that initially she felt that the knee was getting better after surgery however then the pain started. Pain got suddenly worse 2 days ago. She noticed a little bit of pus coming from an open wound yesterday. She is also been suffering from some dizziness chills and subjective sensation of fever. The patient has a history of chronic cough. She denies any significant change in her cough symptoms. She does have shortness of breath and some chest tightness which she attributes to her smoking. Given that the pain was was getting worse and the patient was having shortness of breath she decided to come to the emergency room for further evaluation. In the emergency room on presentation patient was afebrile temperature 98.5, heart rate 103, blood pressure normal 136/62 and she was saturating 99% on room air. Labs showed a normal WBC count at 4.8, hemoglobin 10.4, platelets 273. Chemistry unremarkable, ESR 34, lactic acid 1.3, HR CRP 46. UA showed a few RBCs, chest x-ray shows pneumonia in the right middle lobe and right lower lobe, knee x-ray shows effusion in the right knee. Blood cultures were sent IV antibiotics given in the ED and the patient was presented for admission. The ED physician was hesitant to tap the knee was trying to get in touch with Ortho. However patient did get antibiotics. I had ordered radiology guided arthrocentesis, we will follow-up the results but this is after the patient has received Rocephin and levofloxacin. Patient is being admitted to the hospital for possible septic arthritis as well as pneumonia. Pneumonia- patient has neg blood cultures, no oxygen requirements, started on levofloxacin with good results. Stable for discharge with total of 5 days of levofloxacin Knee arthritis- SYnovial fluid analysis reviewed, not suspicious for infective arthritis, but does have pseudogout, patient will be treated with po naproxen for 2 weeks. Unable to give localized steroids due to recent knee surgery. Reveiwed this NSAID with the patient and she said she can tolerate it. Advised to take it with food. The rest of the stay in the hospital was unremarkable, pt tolerating po diet well educated on smoking cessation. Will be discharged home with ortho and pcp follow up Discharge diagnosis: pneumonia, inflammatory arthritis - Time Spent with Patient Total time spent providing and/or coordinating discharge services: Greater than 30 minutes Medical - DS: Exam - Constitutional Vitals: Vital Signs Temp Pulse Pulse Resp BP BP BP 01/01/18 12:00 97.8 F 87 15 126/74 01/01/18 06:31 97.6 F 94 H 18 136/82 01/01/18 04:00 98.1 F 98 H 18 125/66 01/01/18 01:01 98.2 F 01/01/18 00:16 99.3 F H 12/31/17 23:39 12/31/17 23:38 99.7 F H 108 H 21 119/61 12/31/17 20:00 99.6 F H 102 H 20 121/58 12/31/17 18:24 99.6 F H 12/31/17 17:50 101.4 F H 12/31/17 17:39 101.4 F H 12/31/17 16:00 97.1 F 81 16 136/80 12/31/17 15:52 97.1 F 81 16 136/80 12/31/17 14:33 96.9 F L 89 16 144/79 12/31/17 13:46 98.5 F 83 16 136/62 12/31/17 13:32 83 12/31/17 13:31 80 136/62 12/31/17 13:16 84 145/61 Pulse Ox 01/01/18 12:00 98 01/01/18 06:31 98 01/01/18 04:00 94 01/01/18 01:01 01/01/18 00:16 12/31/17 23:39 94 12/31/17 23:38 89 L 12/31/17 20:00 91 12/31/17 18:24 12/31/17 17:50 12/31/17 17:39 12/31/17 16:00 91 12/31/17 15:52 91 12/31/17 14:33 90 12/31/17 13:46 97 12/31/17 13:32 97 12/31/17 13:31 98 12/31/17 13:16 98 Intake and Output 12/31/17 01/01/18 01/01/18 21:59 05:59 13:59 Intake Total 300 / 300 800 / 800 Output Total 300 / 300 Balance 300 / 300 500 / 500 Intake: Oral 300 / 300 800 / 800 Output: Void Amount 300 / 300 Other: # Voids 2 2 Weight 185 lb 8 oz 185 lb 8 oz Patient Weight 01/02/18 05:59 Weight 185 lb 8 oz Additional comments: Constitutional; Afebrile, cooperative, alert, not in distress. Eyes- No icterus, , No periorbital swelling Ears- Ext ear normal, hearing normal to conversation. Neck- Midline trachea, supple Respiratory system: Air Entry equal on both sides, No crackles or wheezing, no rhonchi. CVS- Rate rhythm regular, S1,S2 heard, no gallop, no rub. Abdomen- Soft nontender abdomen, no organomegaly, no tenderness, no guarding or rigidity, STEEL MOLDER- AOOx3, moving all extremities, no gross focal deficit noted. Medical - DS: Data Labs on day of discharge: Labs from last 24 hours 01/01/18 01/01/18 01/01/18 07:45 07:45 07:45 WBC RBC Hgb Hct MCV MCH MCHC RDW Plt Count MPV Gran % Lymph % (Auto) [place] % (Auto) Eos % (Auto) Baso % (Auto) Gran # Lymph # (Auto) [place] # (Auto) Eos # (Auto) Baso # (Auto) ESR 44 H Sodium 139 Potassium 4.1 Chloride 101 Carbon Dioxide 24 Anion Gap 14.0 BUN 5 L Creatinine 0.7 GFR Calculation 98 Glucose 112 H Uric Acid 4.8 Calcium 8.6 Phosphorus 3.4 Magnesium 1.8 Total Bilirubin 0.3 Direct Bilirubin < 0.2 GGT 72 H AST 10 ALT < 5 Alkaline Phosphatase 168 H Lactate Dehydrogenase 375 H C-Reactive Protein 6.9 H Total Protein 6.3 Albumin 3.5 Globulin 2.8 Albumin/Globulin Ratio 1.3 Triglycerides 285 H Fluid Crystals Synovial Source Synovial Color Synovial Appearance Synovial Tot Cell Ct Synovial Nuc Cells Synovial Neutrophils Synovial Lymphocytes Synovial Other Cells Synovial Diff Comment Synovial Glucose 01/01/18 12/31/17 07:45 13:17 WBC 3.1 L RBC 3.70 L Hgb 9.8 L Hct 30.0 L MCV 81.0 MCH 26.4 MCHC 32.6 RDW 17.8 H Plt Count 241 MPV 9.9 Gran % 67.6 Lymph % (Auto) 24.4 [place] % (Auto) 7.5 Eos % (Auto) 0.3 Baso % (Auto) 0.2 Gran # 2.1 Lymph # (Auto) 0.8 L [place] # (Auto) 0.2 Eos # (Auto) 0 Baso # (Auto) 0 ESR Sodium Potassium Chloride Carbon Dioxide Anion Gap BUN Creatinine GFR Calculation Glucose Uric Acid Calcium Phosphorus Magnesium Total Bilirubin Direct Bilirubin GGT AST ALT Alkaline Phosphatase Lactate Dehydrogenase C-Reactive Protein Total Protein Albumin Globulin Albumin/Globulin Ratio Triglycerides Fluid Crystals Ca pyrophosphate Synovial Source Synovial Synovial Color Red Synovial Appearance Cloudy Synovial Tot Cell Ct 100 Synovial Nuc Cells 752 Synovial Neutrophils 52 H Synovial Lymphocytes 17 Synovial Other Cells 31 Synovial Diff Comment Not Reportable Synovial Glucose 31 Preliminary micro results at discharge 12/31/17 10:43 Blood Culture - Preliminary Blood 12/31/17 10:40 Blood Culture - Preliminary Blood 12/31/17 13:18 Body Fluid Culture - Preliminary Synovial Fluid Medical - DS: A/P - Patient/Caregiver Discharge Instructions Activity: as per physical therapy Diet: Regular Diet Additional Instructions: Twice a day dressing changes to your right knee, apply Silvasorb, Bandaid then wrap with Truong Wrap. Refrain from smoking. take antibiotic for 3 more days, levofloxacin 750mg daily Take naproxen 550mg bid with food for 2 weeks, stop mediction if you notice any blood in stools or black stools. Go to the emergency room for fever chest pain shortness of breath, black stools or blood in the stools. Or any other acute concerns. Follow-up with primary care provider in 1 week Follow-up with orthopedics as scheduled Prescriptions: oxyCODONE/APAP [Percocet 10-325Mg] 1 tab PO Q4-6HP PRN #40 tab PRN Reason: Pain Level 3-6 - Follow up Plan Follow up with: Arturo Navarrete MD [Physician] - 01/13/18 10:40 am Maycol Toledo [Primary Care Provider] - Disposition: Home, Self-Care Prognosis: Good Rehab Potential: Good I certify that the patient requires SNF services: No Overall status at discharge: patient is progressing back to baseline Medical - DS: Qual - VTE Deep Vein Thrombosis/Pulmonary Embolism Present on Admission: No
[2018-01-02] MEDS ORDERED: LEVOFLOXACIN 750 MG TABLET PO SCH (09:00)
== END 2018-01-01 14:38 | disposition home or self-care (01) ==
LOC: ED 09:14 → MEDSUR 13:38 → INTOOBSV 13:38 → MEDSUR 13:46
PROVIDERS: ADMIT Internal Medicine; ATTEND Internal Medicine
CPT/HCPCS: 97161; 99223; A6248; G0378; J0696; J1170; J1644; J1956; J2405; J7120

== ENCOUNTER 2020-05-19 18:06 | Inpatient (IN) ==
[~2020-05-19 18:06] MED LIST: oxyCODONE/APAP 5/325MG TABLET PO ONE
[2020-05-19] MEDS ORDERED: oxyCODONE/APAP 5/325MG TABLET PO ONE ×2 (18:24→23:31)
--- NOTE | 2020-05-19 18:29 | Emergency Department Note ---
SOB HPI General Chief Complaint: Shortness of Breath/Dyspnea Stated Complaint: SOB Time Seen by Provider: 05/19/20 18:15 Source: patient Mode of arrival: ambulatory Limitations: no limitations History of Present Illness HPI Narrative: Narrative: 60-year-old female presents to the emergency department complaining of shortness of breath and thinking she has pneumonia. Patient states she broke a rib on the left side of her rib cage 10 days ago while sleepwalking and falling. X-ray report from 1 week ago reads as follows. "old mildly mall unified fractures of the posterior left sixth seventh and eighth ribs. Equivocal acute fracture of the anterior sixth rib. Moderately stable cardiomegaly." Patient rates her pain as a 9 on a 0-to-10 scale. States the pain is constant. States that sharp. Radiates to her back on the left side. States because of the pain she cannot breathe deeply. She is short of breath if she walks a half a block. States her chest hurts on the left side at that fractured rib location. Patient states she also has coronary artery disease, status post acute myocardial infarction, has 3 cardiac stents, COPD, CHF, and had some esophageal dysmotility several years ago. Related Data Home Medications Medication Instructions Recorded Confirmed omeprazole 40 mg PO BID 11/30/17 05/19/20 paroxetine HCl [Paxil] 40 mg PO DAILY 11/30/17 05/19/20 quetiapine 200 mg PO HS 11/30/17 05/19/20 gabapentin 300 mg PO QIDP 12/31/17 05/19/20 albuterol sulfate 1 puff INH Q4-6HP PRN 05/10/19 05/19/20 aspirin 81 mg PO DAILY 05/10/19 05/19/20 levothyroxine 75 mcg PO DAILY 05/10/19 05/19/20 rosuvastatin 20 mg PO DAILY 05/10/19 05/19/20 Previous Rx's Medication Instructions Recorded hydrocodone-acetaminophen 1 tab PO Q6H PRN #30 tab 05/10/20 Allergies Allergy/AdvReac Type Severity Reaction Status Date / Time acetaminophen AdvReac Mild Confusion Verified 05/19/20 22:09 [From Jackelyn-Sajan] aspirin AdvReac Mild Gastrointestinal Verified 05/19/20 21:27 Upset ibuprofen AdvReac Mild Gastrointestinal Verified 05/19/20 21:27 Upset morphine AdvReac Mild Agitated Verified 05/19/20 22:09 propoxyphene AdvReac Mild Confusion Verified 05/19/20 22:09 [From Darvocet-N] tramadol [From Ultram] AdvReac Mild Gastrointestinal Verified 05/19/20 21:27 Upset Review of Systems ROS ROS Narrative: Narrative: Constitutional: Reports fever Eyes: Denies eye pain ENT ED: Denies throat pain and rhinorrhea Cardiovascular: Reports chest pain and dyspnea on exertion Respiratory: Reports shortness of breath and cough Gastrointestinal: Reports nausea and vomiting Genitourinary: Denies dysuria Musculoskeletal: Reports back pain Integumentary: Denies rash Neurological: Denies headache Psychiatric: Reports anxiety and depression Hematological/Lymphatic: Denies easy bleeding PFSH Narrative Patient History Narrative: Narrative: Medical/Surgical/Family History All Active Problems (Updated 05/19/20 @ 21:23 by Wilder Foreman MD) Drug overdose (Acute) Chest pain (Acute) Altered mental status (Acute) Acute psychosis (Acute) Postoperative pain (Acute) Community acquired pneumonia (Acute) Septic arthritis of knee, right (Acute) Knee pain, acute (Acute) Wound abscess (Acute) Fall (Acute) Right knee pain (Acute) Right knee sprain (Acute) Knee contusion (Acute) Acute bronchitis (Acute) Left rib fracture (Acute) Bacterial lobar pneumonia (Acute) CHF (congestive heart failure) (Acute) Non-ST elevation myocardial infarction (NSTEMI) in recovery phase (Acute) Chronic back pain (Chronic) Stomach ulcer (Acute) Migraine (Acute) Insomnia (Acute) Fractured bone (Acute) Depressive disorder (Chronic) Intestinal disorder (Acute) Anxiety disorder (Acute) Acid reflux (Acute) Basal cell carcinoma (Acute) Medical History (Updated 05/19/20 @ 21:23 by Wilder Foreman MD) Acid reflux Anxiety disorder Basal cell carcinoma Right Medial [place] - path report states right lower lid Chronic back pain Depressive disorder Drug overdose Fractured bone 2011-Right arm fracture Insomnia Intestinal disorder 2004 Migraine Stomach ulcer 2004 Surgical History (Updated 04/19/20 @ 10:58 by [employer] [place]) History of surgery on arm 2011-Plates, pins, and screws Hx of surgical procedure [id number] Repair-Esophagus callapsed Status post Mohs surgery (11/21/14) Right Medial [place] - path report states right lower lid Family History (Updated 01/29/15 @ 14:21 by Melissa Hart) Father Cerebrovascular accident (CVA) Dementia Family history of arthritis Essential hypertension Acute myocardial infarction Disorder of thyroid Aunt Diabetes mellitus Sister Migraine Social History Smoking Status: Current every day smoker Alcohol Intake Frequency: does not drink Substance Use: marijuana Exam Narrative Narrative: Narrative: General Limitations: no limitations General appearance: Present alert and grimacing Head Head: Present atraumatic, normocephalic and normal inspection Eye Eye: Present normal appearance and EOMI Neck Neck: Present normal inspection and trachea midline Chest Chest: Present symmetric chest wall rise and tenderness (Left side just beneath the left breast and radiating around to the back. Tender); Absent rash Respiratory Respiratory: Present rales/crackles; Absent respiratory distress Cardiovascular Cardiovascular: Present tachycardia Adbominal Abdominal: Present soft; Absent distention, tenderness, guarding, rebound and rigidity Extremities Extremities: Present normal inspection and full ROM Back Back: Present normal inspection Neurological Neurological: Present alert and oriented X3 Psychiatric Psychiatric: Present normal affect and anxious Skin Skin: Present warm (WNL) and dry Course Reevaluation(s) Reevaluation #1: Patient states she felt a little better with the Dilaudid but still having significant pain and requests an additional dose. I reviewed the's x-ray results with the patient along with her lab results. I advised that she be admitted to the hospital and she is agreeable. Time: 21:10 Vital Signs Vital signs: Vital Signs Temperature 98.9 F 05/19/20 18:07 Pulse Rate 95 H 05/19/20 18:07 Respiratory Rate 18 05/19/20 18:07 Blood Pressure 167/80 05/19/20 18:07 Pulse Oximetry (%) 96 05/19/20 18:07 Temperature 98.0 F 05/20/20 02:30 Pulse Rate 110 H 05/20/20 02:30 Respiratory Rate 20 05/20/20 02:30 Blood Pressure 115/60 05/20/20 02:30 Pulse Oximetry (%) 92 05/20/20 02:30 MDM MDM Narrative Medical decision making narrative: Narrative: Middle-aged female presents emerge department complaining of shortness of breath dyspnea on exertion chest pain from a broken rib concerned that she has pneumonia. Patient states she had a temperature of 101.4 in the ambulance although she was afebrile upon arrival. Diagnosis is complicated by history of prior myocardial infarction, COPD, CHF. Differential diagnosis includes #1 Covid infection #2 influenza. #3 community- acquired pneumonia. #4 acute ischemic pain. #5 congestive heart failure. #6 COPD exacerbation Covid test and influenza test have been ordered. Chest x-rays been ordered to look for pneumonia. We will also look for evidence of CHF. Blood work has been ordered to help clarify the diagnosis. Patient does not require oxygen therapy at this time. Patient is given ceftriaxone after the antibiotics in case of pneumonia. Chest x-ray also looks like congestive heart failure on 2 view. I have discussed the case with the hospitalist and we will admit the patient to hospital for further care. She is already received ceftriaxone 1 g IV and she will be given azithromycin 500 mg IV as well. I will give her Lasix for the CHF. Troponin was negative. Lab Data Result diagrams: 05/19/20 18:35 05/19/20 18:35 Labs: Lab Results 05/19/20 05/19/20 05/19/20 Range/Units 18:34 18:35 18:35 WBC 10.1 (4.5-11.0) K/mcL RBC 3.96 L (4.00-5.20) M/mcL Hgb 12.7 (12.0-15.0) g/dL Hct 38.6 (36.0-48.0) % MCV 97.5 (80.0-100.0) fL MCH 32.1 (26.0-34.0) pg MCHC 32.9 (31.0-36.0) g/dL RDW 14.1 (11.5-14.5) % Plt Count 356 (140-440) K/mcL MPV 11.3 H (7.4-10.4) fL Neut % (Auto) 83.8 H (38.0-78.0) % Lymph % (Auto) 10.1 L (15.0-49.0) % [place] % (Auto) 4.0 (1.0-12.0) % Eos % (Auto) 1.8 (0.0-7.0) % Baso % (Auto) 0.3 (0.0-2.0) % Lymph # (Auto) 1.02 L (1.50-4.80) K/mcL [place] # (Auto) 0.41 (0.10-0.90) K/mcL Eos # (Auto) 0.18 (0.00-0.70) K/mcL Baso # (Auto) 0.03 (0.00-0.20) K/mcL Absolute Neutrophils 8.50 H (1.80-8.00) K/mcL D-Dimer 1.11 H (0.27-0.50) ug/mL VBG Lactic Acid 0.9 (0.5-2.0) mmol/L Sodium (133-145) mmol/L Potassium (3.3-5.1) mmol/L Chloride (96-108) mmol/L Carbon Dioxide (22-30) mmol/L Anion Gap (8.0-16.0) BUN (6-20) mg/dL Creatinine (0.6-1.1) mg/dL GFR Calculation Glucose (70-105) mg/dL Calcium (8.6-10.4) mg/dL Total Bilirubin (0.1-1.0) mg/dL AST (<32) U/L ALT (<40) U/L Alkaline Phosphatase (39-117) U/L Troponin T (<0.03) ng/mL NT-Pro-B Natriuret Pep (<125.0) pg/mL Total Protein (5.9-8.4) gm/dL Albumin (3.2-5.2) gm/dL Globulin (2.2-3.7) gm/dL Albumin/Globulin Ratio (1.0-2.3) 05/19/20 05/19/20 Range/Units 18:35 19:14 WBC (4.5-11.0) K/mcL RBC (4.00-5.20) M/mcL Hgb (12.0-15.0) g/dL Hct (36.0-48.0) % MCV (80.0-100.0) fL MCH (26.0-34.0) pg MCHC (31.0-36.0) g/dL RDW (11.5-14.5) % Plt Count (140-440) K/mcL MPV (7.4-10.4) fL Neut % (Auto) (38.0-78.0) % Lymph % (Auto) (15.0-49.0) % [place] % (Auto) (1.0-12.0) % Eos % (Auto) (0.0-7.0) % Baso % (Auto) (0.0-2.0) % Lymph # (Auto) (1.50-4.80) K/mcL [place] # (Auto) (0.10-0.90) K/mcL Eos # (Auto) (0.00-0.70) K/mcL Baso # (Auto) (0.00-0.20) K/mcL Absolute Neutrophils (1.80-8.00) K/mcL D-Dimer (0.27-0.50) ug/mL VBG Lactic Acid (0.5-2.0) mmol/L Sodium 133 (133-145) mmol/L Potassium 3.9 (3.3-5.1) mmol/L Chloride 96 (96-108) mmol/L Carbon Dioxide 23 (22-30) mmol/L Anion Gap 14.0 (8.0-16.0) BUN 11 (6-20) mg/dL Creatinine 0.6 (0.6-1.1) mg/dL GFR Calculation 100 Glucose 84 (70-105) mg/dL Calcium 9.3 (8.6-10.4) mg/dL Total Bilirubin 0.2 (0.1-1.0) mg/dL AST 14 (<32) U/L ALT 8 (<40) U/L Alkaline Phosphatase 246 H (39-117) U/L Troponin T < 0.01 (<0.03) ng/mL NT-Pro-B Natriuret Pep 1547.0 H (<125.0) pg/mL Total Protein 7.2 (5.9-8.4) gm/dL Albumin 3.9 (3.2-5.2) gm/dL Globulin 3.3 (2.2-3.7) gm/dL Albumin/Globulin Ratio 1.2 (1.0-2.3) ED POC Tests ED POC Tests: EMMA - Influenza A Negative EMMA - Influenza B Negative EMMA - SARS Antigen Negative Discharge Plan Patient/Caregiver Discharge Instructions Pt seen by CARDIAC NURSE SPECIALIST/PA only: No Clinical Impression: Bacterial lobar pneumonia CHF (congestive heart failure) Qualifiers: Heart failure type: unspecified Heart failure chronicity: acute on chronic Qualified Code(s): I50.9 - Heart failure, unspecified Left rib fracture Qualifiers: Encounter type: subsequent encounter Rib fracture type: single rib Fracture type: closed Fracture healing: with routine healing Qualified Code(s): S22.32XD - Fracture of one rib, left side, subsequent encounter for fracture with routine healing Activity: as instructed Patient Disposition: Xfer As Inpt ([facility]) Condition: Fair Discharge Date/Time: 05/19/20 21:50
[2020-05-19] MEDS ORDERED: cefTRIAXone 1 GM VIAL IV ONE ×2 (18:46→22:00)
[2020-05-19] MEDS ORDERED: HYDROmorphone 0.5 MG/0.5 ML SYRINGE IV ONE (19:10)
[2020-05-19 19:44] LABS: Basophils # (Auto) 0.03 K/mcL (0.00-0.20); Basophils % (Auto) 0.3 % (0.0-2.0); Eosinophils # (Auto) 0.18 K/mcL (0.00-0.70); Eosinophils % (Auto) 1.8 % (0.0-7.0); Hematocrit 38.6 % (36.0-48.0); Hemoglobin 12.7 g/dL (12.0-15.0); Lymphocytes # (Auto) 1.02 K/mcL (1.50-4.80); Lymphocytes % (Auto) 10.1 % (15.0-49.0); Mean Cell Volume 97.5 fL (80.0-100.0); Mean Corpuscular HGB Conc 32.9 g/dL (31.0-36.0); Mean Platelet Volume 11.3 fL (7.4-10.4); Monocytes # (Auto) 0.41 K/mcL (0.10-0.90); Neutrophils % (Auto) 83.8 % (38.0-78.0); Platelet Count 356 K/mcL (140-440); RBC 3.96 M/mcL (4.00-5.20); Red Cell Distribution Width 14.1 % (11.5-14.5); WBC 10.1 K/mcL (4.5-11.0)
[2020-05-19] MEDS ORDERED: QUEtiapine 100 MG TABLET ONE ×2 (20:03→22:39)
[2020-05-19] MEDS ORDERED: HEPARIN 5,000 UNIT/ML VIAL ONE (20:03)
[2020-05-19] MEDS ORDERED: GABAPENTIN 300 MG CAPSULE ONE ×2 (20:03→22:39)
[2020-05-19 20:09] LABS: ALT/SGPT 8 U/L (<40); AST/SGOT 14 U/L (<32); Albumin 3.9 gm/dL (3.2-5.2); Albumin/Globulin Ratio 1.2 (1.0-2.3); Alkaline Phosphatase 246 U/L (39-117); Bilirubin,Total 0.2 mg/dL (0.1-1.0); Blood Urea Nitrogen 11 mg/dL (6-20); Calcium 9.3 mg/dL (8.6-10.4); Carbon Dioxide 23 mmol/L (22-30); Chloride 96 mmol/L (96-108); Globulin 3.3 gm/dL (2.2-3.7); Glomerular Filtration Rate 100; Glucose 84 mg/dL (70-105)
[2020-05-19] MEDS ORDERED: HYDROmorphone 1 MG/ML SYRINGE IV ONE (21:15)
[2020-05-19] MEDS ORDERED: FUROSEMIDE 20 MG/2 ML VIAL IV ONE (21:21)
--- NOTE | 2020-05-19 21:26 | Internal Med History&Physical ---
HPI History of Present Illness Patient information: Note initiated : 05/19/20 at 9:25 pm Service Date, if different from initiated Date: [] Patient: Valerie Garay a 60 y/o F admitted on for Shortness of breath. Chief Complaint: [] History of present illness: Ms. Garay is a 60 year old F with a history anxiety disorder who fell roughly 11 days ago landing on her left side and fractured rib. Over the next few days patient noted increasing shortness of breath/cough and symptoms she felt were like pneumonia, she noted progressive dyspnea limiting her functionality and activities day living. She presented to the ER with above concerns. Initial work-up was consistent with acute rib fractures/widespread bilateral chest infiltrates consistent with pneumonia. Hospitalist service was consulted. I could not see a COVID-19 test and hence ordered. At the patient was started on antibiotic coverage. At the time of my evaluation patient is anxious. She endorses symptoms as above. She denies purulent cough/diarrhea/fever/shaking chills but endorses to weakness from and body aches. She does not want to meet anybody in appears withdrawn. She is however nondistressed and maintaining sats around 90% on room air. She remains tachycardic with a low-grade fever of 100.3. She denies sick contacts or travel outside of the [place] Review of systems 10 point review system was performed and is negative except for ones discussed above PFSH PFSH All Active Problems (Updated 05/19/20 @ 21:23 by Wilder Foreman MD) Drug overdose (Acute) Chest pain (Acute) Altered mental status (Acute) Acute psychosis (Acute) Postoperative pain (Acute) Community acquired pneumonia (Acute) Septic arthritis of knee, right (Acute) Knee pain, acute (Acute) Wound abscess (Acute) Fall (Acute) Right knee pain (Acute) Right knee sprain (Acute) Knee contusion (Acute) Acute bronchitis (Acute) Left rib fracture (Acute) Bacterial lobar pneumonia (Acute) CHF (congestive heart failure) (Acute) Non-ST elevation myocardial infarction (NSTEMI) in recovery phase (Acute) Chronic back pain (Chronic) Stomach ulcer (Acute) Migraine (Acute) Insomnia (Acute) Fractured bone (Acute) Depressive disorder (Chronic) Intestinal disorder (Acute) Anxiety disorder (Acute) Acid reflux (Acute) Basal cell carcinoma (Acute) Medical History (Updated 05/19/20 @ 21:23 by Wilder Foreman MD) Acid reflux Anxiety disorder Basal cell carcinoma Right Medial [place] - path report states right lower lid Chronic back pain Depressive disorder Drug overdose Fractured bone 2011-Right arm fracture Insomnia Intestinal disorder 2004 Migraine Stomach ulcer 2004 Surgical History (Updated 04/19/20 @ 10:58 by [employer] [place]) History of surgery on arm 2011-Plates, pins, and screws Hx of surgical procedure [id number] Repair-Esophagus callapsed Status post Mohs surgery (11/21/14) Right Medial [place] - path report states right lower lid Family History (Updated 01/29/15 @ 14:21 by Melissa Hart) Father Cerebrovascular accident (CVA) Dementia Family history of arthritis Essential hypertension Acute myocardial infarction Disorder of thyroid Aunt Diabetes mellitus Sister Migraine Social History marital status: smoking status: Current every day smoker alcohol intake frequency: does not drink substance use type: marijuana MEDS/ALLERGIES Home Medications and Allergies Home Medications Medication Instructions Recorded Confirmed Type omeprazole 40 mg PO BID 11/30/17 05/19/20 History paroxetine HCl [Paxil] 40 mg PO DAILY 11/30/17 05/19/20 History quetiapine 200 mg PO HS 11/30/17 05/19/20 History gabapentin 300 mg PO QIDP 12/31/17 05/19/20 History albuterol sulfate 1 puff INH Q4-6HP PRN 05/10/19 05/19/20 History aspirin 81 mg PO DAILY 05/10/19 05/19/20 History levothyroxine 75 mcg PO DAILY 05/10/19 05/19/20 History rosuvastatin 20 mg PO DAILY 05/10/19 05/19/20 History hydrocodone-acetaminophen 1 tab PO Q6H PRN #30 tab 05/10/20 05/19/20 Rx Allergies Allergy/AdvReac Type Severity Reaction Status Date / Time acetaminophen AdvReac Mild Confusion Verified 05/19/20 22:09 [From Darvocet-N] aspirin AdvReac Mild Gastrointestinal Verified 05/19/20 21:27 Upset ibuprofen AdvReac Mild Gastrointestinal Verified 05/19/20 21:27 Upset morphine AdvReac Mild Agitated Verified 05/19/20 22:09 propoxyphene AdvReac Mild Confusion Verified 05/19/20 22:09 [From Darvocet-N] tramadol [From Ultram] AdvReac Mild Gastrointestinal Verified 05/19/20 21:27 Upset EXAM Constitutional Vitals: Temp Pulse Resp BP Pulse Ox 98.3 F 95 H 18 152/75 93 05/19/20 19:32 05/19/20 21:06 05/19/20 18:07 05/19/20 21:08 05/19/20 21:06 Anxious Head normocephalic Oral cavity moist No ear nose discharge Eye movement symmetrical Neck supple no lymphadenopathy S1-S2 tachycardia Minimally labored breathing on room air Nondistended nontender abdomen Lower extremity no cyanosis clubbing or joint swelling Skin no suspicious lesion Psych anxious but alert cooperative Neuro normal higher function DATA Data Completed and Pending Labs: Labs from last 24 hours 05/19/20 05/19/20 05/19/20 19:14 18:35 18:35 WBC RBC Hgb Hct MCV MCH MCHC RDW Plt Count MPV Neut % (Auto) Lymph % (Auto) [place] % (Auto) Eos % (Auto) Baso % (Auto) Lymph # (Auto) [place] # (Auto) Eos # (Auto) Baso # (Auto) Absolute Neutrophils D-Dimer 1.11 H VBG Lactic Acid Sodium 133 Potassium 3.9 Chloride 96 Carbon Dioxide 23 Anion Gap 14.0 BUN 11 Creatinine 0.6 GFR Calculation 100 Glucose 84 Calcium 9.3 Total Bilirubin 0.2 AST 14 ALT 8 Alkaline Phosphatase 246 H Troponin T Pending NT-Pro-B Natriuret Pep 1547.0 H Total Protein 7.2 Albumin 3.9 Globulin 3.3 Albumin/Globulin Ratio 1.2 05/19/20 05/19/20 18:35 18:34 WBC 10.1 RBC 3.96 L Hgb 12.7 Hct 38.6 MCV 97.5 MCH 32.1 MCHC 32.9 RDW 14.1 Plt Count 356 MPV 11.3 H Neut % (Auto) 83.8 H Lymph % (Auto) 10.1 L [place] % (Auto) 4.0 Eos % (Auto) 1.8 Baso % (Auto) 0.3 Lymph # (Auto) 1.02 L [place] # (Auto) 0.41 Eos # (Auto) 0.18 Baso # (Auto) 0.03 Absolute Neutrophils 8.50 H D-Dimer VBG Lactic Acid 0.9 Sodium Potassium Chloride Carbon Dioxide Anion Gap BUN Creatinine GFR Calculation Glucose Calcium Total Bilirubin AST ALT Alkaline Phosphatase Troponin T NT-Pro-B Natriuret Pep Total Protein Albumin Globulin Albumin/Globulin Ratio A/P Narrative A/P Narrative: * Bilateral multifocal community acquired Pneumonia-start empiric antibiotic coverage. Sputum cultures/pulmonary toilet * Pulmonary congestion on chest imaging. No history of CHF. Check echocardiogram. Diuresis indicated. * Dyspnea secondary to combination of above. Continue supplemental oxygen if indicated. Currently on room air maintain sats around 90% * Left sixth and seventh rib fracture with pleurisy. Continue pain manag ement/lidocaine/scheduled Tylenol/capsaicin gel * Anxiety disorder continue paroxetine/quetiapine * Reactive airway disease continue bronchodilators * Chronic pain on hydrocodone * Hypothyroidism continue thyroxine * GERD continue PPI * Hyperlipidemia on statin * Prophylaxis Heparin PLAN * Inpt admit * Antibiotic coverage * Echocardiogram * CT chest Am * Pre-existing medical condition management home medications * PT OT nutrition support * Multimodal pain management * Discharge planning Time Spent With Patient Time: Total time spent is greater than 50% in coordination of care (as documented) at patient's floor/unit and/or counseling patient:
[2020-05-19] MEDS ORDERED: AZITHROMYCIN 500 MG in DEXTROSE 5% IN WATER 250 ML IV SCH (21:30)
[2020-05-19] MEDS ORDERED: POTASSIUM CHLORIDE 20 MEQ PACKET PO PRN (21:51)
[2020-05-19] MEDS ORDERED: POTASSIUM CHLORIDE 40 MEQ in DEXTROSE 5% IN WATER 500 ML IV PRN (21:51)
[2020-05-19] MEDS ORDERED: MELATONIN 3 MG TABLET PO PRN (21:51)
[2020-05-19] MEDS ORDERED: ONDANSETRON 4 MG/2 ML VIAL IV PRN (21:51)
[2020-05-19] MEDS ORDERED: ONDANSETRON 4 MG ODT TABLET SL PRN (21:51)
[2020-05-19] MEDS ORDERED: IPRATROPIUM/ALBUTEROL 3 ML AMPUL.NEB NEB PRN (21:51)
[2020-05-19] MEDS ORDERED: POLYETHYLENE GLYCOL 3350 17 GM PACKET PO PRN (21:51)
[2020-05-19] MEDS ORDERED: METOPROLOL TARTRATE 5 MG/5 ML VIAL IV PRN (21:51)
[2020-05-19] MEDS ORDERED: ACETAMINOPHEN 325 MG TABLET PO PRN (21:51)
[2020-05-19] MEDS ORDERED: BISACODYL 10 MG SUPP.RECT PR PRN (21:51)
[2020-05-19] MEDS ORDERED: MAGNESIUM SULFATE 2 GM/50 ML BAG IV PRN (21:51)
[2020-05-19] MEDS ORDERED: hydrALAZINE 20 MG/ML VIAL IV PRN (21:51)
[2020-05-19] MEDS: 0.9 % SODIUM CHLORIDE 10 ML SYRINGE IV SCH (22:21)
[2020-05-19] MEDS ORDERED: ALBUTEROL SULFATE 200 PUFF INHALER INH PRN (22:26)
[2020-05-19] MEDS: QUEtiapine 100 MG TABLET PO SCH (22:45)
[2020-05-19] MEDS: GABAPENTIN 300 MG CAPSULE PO SCH (22:45)
[2020-05-20] MEDS: 0.9 % SODIUM CHLORIDE 10 ML SYRINGE IV SCH ×4 (05:15→20:11)
[2020-05-20] MEDS: ACETAMINOPHEN 650 MG/65 ML BAG IV PRN ×3 (05:17→19:07)
[2020-05-20] MEDS ORDERED: oxyCODONE/APAP 5/325MG TABLET PO ONE (06:01)
[2020-05-20 07:11] LABS: Basophils # (Auto) 0.03 K/mcL (0.00-0.20); Basophils % (Auto) 0.4 % (0.0-2.0); Eosinophils # (Auto) 0.18 K/mcL (0.00-0.70); Eosinophils % (Auto) 2.3 % (0.0-7.0); Hematocrit 33.4 % (36.0-48.0); Hemoglobin 10.8 g/dL (12.0-15.0); Lymphocytes # (Auto) 0.92 K/mcL (1.50-4.80); Lymphocytes % (Auto) 11.9 % (15.0-49.0); Mean Cell Volume 97.7 fL (80.0-100.0); Mean Corpuscular HGB Conc 32.3 g/dL (31.0-36.0); Mean Platelet Volume 10.9 fL (7.4-10.4); Monocytes # (Auto) 0.33 K/mcL (0.10-0.90); Monocytes % (Auto) 4.3 % (1.0-12.0); Neutrophils % (Auto) 81.1 % (38.0-78.0); Platelet Count 305 K/mcL (140-440); RBC 3.42 M/mcL (4.00-5.20); Red Cell Distribution Width 14.1 % (11.5-14.5); WBC 7.8 K/mcL (4.5-11.0)
[2020-05-20 07:34] LABS: ALT/SGPT < 5 U/L (<40); AST/SGOT 11 U/L (<32); Albumin 3.3 gm/dL (3.2-5.2); Albumin/Globulin Ratio 1.1 (1.0-2.3); Alkaline Phosphatase 209 U/L (39-117); Bilirubin,Direct < 0.2 mg/dL (0-0.3); Bilirubin,Total 0.2 mg/dL (0.1-1.0); Blood Urea Nitrogen 9 mg/dL (6-20); Calcium 8.6 mg/dL (8.6-10.4); Carbon Dioxide 26 mmol/L (22-30); Chloride 97 mmol/L (96-108); Glomerular Filtration Rate 100; Glucose 99 mg/dL (70-105); Lactate Dehydrogenase 386 U/L (135-225); Phosphorous 3.1 mg/dL (2.5-4.5); Triglycerides 240 mg/dL (<150); Uric Acid 4.8 mg/dL (2.5-8.0)
[2020-05-20] MEDS: MULTIVIT,THER IRON,CA,FA & MIN 1 TABLET PO SCH (08:09)
[2020-05-20] MEDS: ATORVASTATIN 20 MG TABLET PO SCH (08:09)
[2020-05-20] MEDS: PARoxetine 20 MG TABLET PO SCH (08:10)
[2020-05-20] MEDS: LEVOTHYROXINE 75 MCG TABLET PO SCH (08:10)
[2020-05-20] MEDS: ASPIRIN 81 MG TAB.CHEW PO SCH (08:10)
[2020-05-20] MEDS: OMEPRAZOLE 20 MG CAPSULE PO SCH ×2 (08:10→16:40)
[2020-05-20] MEDS: HYDROcodone/APAP 5/325MG TABLET PO PRN ×2 (08:11→13:35)
[2020-05-20] MEDS: HEPARIN 5,000 UNIT/ML VIAL SQ SCH ×2 (08:12→20:06)
[2020-05-20] MEDS: FUROSEMIDE 40 MG/4 ML VIAL IV SCH (08:12)
[2020-05-20] MEDS: DOCUSATE SODIUM 100 MG CAPSULE PO SCH ×2 (08:31→19:58)
--- NOTE | 2020-05-20 08:49 | XRay Report ---
HISTORY: Shortness of breath, fever and left rib fracture FINDINGS: There is a moderate diffuse alveolar infiltrate throughout the right lung with milder diffuse infiltrate in the left lung. These have developed since 05/10/19. The heart remains moderately enlarged. There is no pleural effusion or pneumothorax. Stable rib fractures are again seen posterolaterally in the left mid thorax. IMPRESSION: New onset bilateral pneumonia Interpreted and Authenticated by: Onur Foster 05/20/20
--- NOTE | 2020-05-20 09:02 | XRay Report ---
HISTORY: Short of breath, pulmonary infiltrates, rib fracture FINDINGS: PA and lateral views were obtained. There are moderate diffuse infiltrates throughout both lungs. This is a patchy distribution. The greatest consolidation is in the right lower lobe. These obscure the pulmonary vessels. There is no pleural effusion. The heart is moderately enlarged. This is a chronic stable finding. The infiltrates partially obscure the hoang but no adenopathy is detected. Patient has bilateral rib fractures which appear old. There is also an old moderately severe wedge compression fracture at T12. Comparison with the earlier study done at 18:24 on the same date shows the infiltrates are becoming worse. IMPRESSION: Widespread bilateral alveolar infiltrates. This could be due to pneumonia, edema, ARDS or a combination of the above. Interpreted and Authenticated by: Onur Foster 05/20/20
[2020-05-20] MEDS: LIDOCAINE PATCH TOPICAL SCH (10:43)
--- NOTE | 2020-05-20 11:00 | Internal Med Progress Note ---
SUBJECTIVE Subjective Patient information: Note initiated : 05/20/20 at 10:56 am Service Date, if different from initiated Date: [] Patient: Valerie Garay a 60 y/o F admitted on 05/19/20 for Shortness of breath. Chief Complaint: [] Interval history: Ms. Garay is a 60 year old F with a history anxiety disorder who fell roughly 11 days ago landing on her left side and fractured rib. Over the next few days patient noted increasing shortness of breath/cough and symptoms she felt were like pneumonia, she noted progressive dyspnea limiting her functionality and activities day living. She presented to the ER with above concerns. Initial work-up was consistent with acute rib fractures/widespread bilateral chest infiltrates consistent with pneumonia. Hospitalist service was consulted. I could not see a COVID-19 test and hence ordered. At the patient was started on antibiotic coverage. At the time of my evaluation patient is anxious. She endorses symptoms as above. She denies purulent cough/diarrhea/fever/shaking chills but endorses to wea kness from and body aches. She does not want to meet anybody in appears withdrawn. She is however nondistressed and maintaining sats around 90% on room air. She remains tachycardic with a low-grade fever of 100.3. She denies sick contacts or travel outside of the [place] 05/20-patient seen in room. Reluctant to talk. However complains of persistent dyspnea. Currently on room air. Ongoing antibiotics coverage for community- acquired pathogen. Refused physical therapy this morning. White count 7.8, cancel CT chest as remains on room air no clinical duration. COVID-19 negative. Nutrition support Constitutional Vitals: Vital Signs Temp Pulse Resp BP Pulse Ox 98.9 F 103 H 22 142/82 90 05/20/20 07:53 05/20/20 07:53 05/20/20 07:53 05/20/20 07:53 05/20/20 07:53 Period Temp Pulse Resp BP Sys/Whalen Pulse Ox Last 24 Hr 98.0 F-100.3 F 94-115 18-22 115-186/60-109 90-96 Intake and Output 05/19/20 05/20/20 05/20/20 21:59 05:59 13:59 Intake Total 83 545 0 Output Total 300 650 Balance 83 245 -650 Weight 93.44 kg Alert and oriented Anxious Nonlabored breathing on room air Intake & Output: Intake & Output 05/19/20 05/20/20 05/20/20 21:59 05:59 13:59 Intake Total 83 545 0 Output Total 300 650 Balance 83 245 -650 Weight 93.44 kg Intake: IV 83 65 Zithromax 500 mg In Dextrose 5% 83 0 in Water 250 ml @ 250 mls/hr IV Q24H [facility] Rx#:[id number] Oral 480 0 Output: Void Amount 300 650 Other: Urine Appearance Clear Clear Clear Urine Color Bright Yellow Bright Yellow Dark Yellow Urine Odor Normal Normal # Voids 2 OBJ DATA Labs CBC & Chem 7: 05/20/20 05:23 05/20/20 05:23 Labs: Abnormal Lab Results 05/20/20 05/20/20 05/19/20 05:23 05:23 22:12 RBC 3.42 L Hgb 10.8 L Hct 33.4 L MPV 10.9 H Neut % (Auto) 81.1 H Lymph % (Auto) 11.9 L Lymph # (Auto) 0.92 L Absolute Neutrophils D-Dimer GGT 133 H Alkaline Phosphatase 209 H Lactate Dehydrogenase 386 H NT-Pro-B Natriuret Pep Triglycerides 240 H Procalcitonin 0.23 H 05/19/20 05/19/20 05/19/20 18:35 18:35 18:35 RBC 3.96 L Hgb Hct MPV 11.3 H Neut % (Auto) 83.8 H Lymph % (Auto) 10.1 L Lymph # (Auto) 1.02 L Absolute Neutrophils 8.50 H D-Dimer 1.11 H GGT Alkaline Phosphatase 246 H Lactate Dehydrogenase NT-Pro-B Natriuret Pep 1547.0 H Triglycerides Procalcitonin Meds: Medications Acetaminophen (Acetaminophen 325 Mg Tablet) 650 mg PO Q4-6HP PRN; Protocol PRN Reason: Per Pain Protocol/Fever > 101 Hydrocodone Bitart/Acetaminophen (Hydrocodone/Apap 5/325mg Tablet) 1 tab PO Q6HP PRN; Protocol PRN Reason: pain Last Admin: 05/20/20 08:11 Dose: 1 tab Documented by: Albuterol Sulfate (Albuterol Sulfate 200 Puff Inhaler) 1 puff INH Q4-6HP PRN PRN Reason: Chest Pain Albuterol/Ipratropium (Ipratropium/Albuterol 3 Ml Ampul.Neb) 3 ml NEB Q4HP PRN PRN Reason: Shortness Of Breath Aspirin (Aspirin 81 Mg Tab.Chew) 81 mg PO DAILY [facility] Last Admin: 05/20/20 08:10 Dose: 81 mg Documented by: Atorvastatin Calcium (Atorvastatin 20 Mg Tablet) 40 mg PO DAILY [facility] Last Admin: 05/20/20 08:09 Dose: 40 mg Documented by: Bisacodyl (Bisacodyl 10 Mg Supp.Rect) 10 mg MS Q2-3DAYS PRN PRN Reason: Constipation Docusate Sodium (Docusate Sodium 100 Mg Capsule) 100 mg PO BID [facility] Last Admin: 05/20/20 08:31 Dose: Not Given Documented by: Furosemide (Furosemide 40 Mg/4 Ml Vial) 40 mg IV DAILY [facility] Last Admin: 05/20/20 08:12 Dose: 40 mg Documented by: Gabapentin (Gabapentin 300 Mg Capsule) 300 mg PO QIDP [facility] Last Admin: 05/19/20 22:45 Dose: 300 mg Documented by: Heparin Sodium (Porcine) (Heparin 5,000 Unit/Ml Vial) 5,000 unit SQ Q12 [facility] Last Admin: 05/20/20 08:12 Dose: 5,000 unit Documented by: Hydralazine HCl (Hydralazine 20 Mg/Ml Vial) 10 mg IV Q4-6HP PRN PRN Reason: Hypertension Azithromycin 500 mg/ Dextrose 250 mls @ 250 mls/hr IV DAILY [facility]; Protocol Stop: 05/21/20 09:59 Potassium Chloride 40 meq/ (Dextrose) 520 mls @ 130 mls/hr IV UD PRN PRN Reason: K+ = or < 3.5 Acetaminophen (Ofirmev) 650 mg in 65 mls @ 130 mls/hr IV Q6HP PRN; Protocol PRN Reason: Per Pain Protocol/Fever > 101 Last Infusion: 05/20/20 05:47 Dose: Infused Documented by: Magnesium Sulfate (Magnesium Sulfate) 2 gm in 50 mls @ 50 mls/hr IV UD PRN PRN Reason: MG = or < 1.7 Ceftriaxone Sodium 2 gm/ (Dextrose) 50 mls @ 100 mls/hr IV DAILY [facility]; Protocol Iron Carb/Multivit/[employer]/Folic Acid (Multivit,Ther Iron,Ca,Fa & Min 1 Tablet) 1 tab PO DAILY [facility] Last Admin: 05/20/20 08:09 Dose: 1 tab Documented by: Levothyroxine Sodium (Levothyroxine 75 Mcg Tablet) 75 mcg PO QAMAC [facility] Last Admin: 05/20/20 08:10 Dose: 75 mcg Documented by: Lidocaine (Lidocaine Patch) 1 patch TOPICAL DAILY@1000 [facility] Last Admin: 05/20/20 10:43 Dose: 1 patch Documented by: Melatonin (Melatonin 3 Mg Tablet) 3 mg PO HSP PRN PRN Reason: Insomnia Metoprolol Tartrate (Metoprolol Tartrate 5 Mg/5 Ml Vial) 5 mg IV Q5M PRN PRN Reason: Heart Rate > 140 bpm Omeprazole (Omeprazole 20 Mg Capsule) 40 mg PO BIDAC [facility] Last Admin: 05/20/20 08:10 Dose: 40 mg Documented by: Ondansetron HCl (Ondansetron 4 Mg Odt Tablet) 4 mg SL Q4-6HP PRN; Protocol PRN Reason: Nausea And Vomiting Ondansetron HCl (Ondansetron 4 Mg/2 Ml Vial) 4 mg IV Q4-6HP PRN; Protocol PRN Reason: Nausea And Vomiting Paroxetine HCl (Paroxetine 20 Mg Tablet) 40 mg PO DAILY [facility] Last Admin: 05/20/20 08:10 Dose: 40 mg Documented by: Polyethylene Glycol (Polyethylene Glycol 3350 17 Gm Packet) 17 gm PO DAILYP PRN PRN Reason: Constipation Potassium Chloride (Potassium Chloride 20 Meq Packet) 40 meq PO DAILYP PRN PRN Reason: K+ < 3.5 Quetiapine Fumarate (Quetiapine 100 Mg Tablet) 200 mg PO [facility] Last Admin: 05/19/20 22:45 Dose: 200 mg Documented by: Senna/Docusate Sodium (Sennosides/Docusate Sodium 1 Tab Tablet) 1 tab PO [facility] Sodium Chloride (0.9 % Sodium Chloride 10 Ml Syringe) 10 ml IV Q8 [facility] Last Admin: 05/20/20 05:15 Dose: 10 ml Documented by: A/P Narrative A/P Narrative: * Bilateral multifocal community acquired Pneumonia-clinically improving on empiric antibiotic coverage. Await sputum cultures/pulmonary toilet, COVID-19 negative * Pulmonary congestion on chest imaging. No history of CHF. Await echocardiogram. Diuresis indicated. * Dyspnea secondary to combination of above. Pulmonary toilet. Currently on room air maintain sats around 90% * Left sixth and seventh rib fracture with pleurisy. Continue pulmonary toilet, pain management/lidocaine/scheduled Tylenol/capsaicin gel * Anxiety disorder continue paroxetine/quetiapine * Reactive airway disease continue bronchodilators * Chronic pain on hydrocodone * Hypothyroidism continue thyroxine * GERD continue PPI * Hyperlipidemia on statin * Prophylaxis Heparin PLAN * Antibiotic coverage * Echocardiogram * Pre-existing medical condition management home medications * PT OT nutrition support * Multimodal pain management * Discharge planning Time Spent With Patient Time: Total time spent is greater than 50% in coordination of care (as documented) at patient's floor/unit and/or counseling patient: QUALITY Stroke Symptom Onset Unknown: No VTE Deep Vein Thrombosis/Pulmonary Embolism Present on Admission: No
[2020-05-20] MEDS: cefTRIAXone 2 GM in DEXTROSE 5% IN WATER 50 ML IV SCH (12:43)
[2020-05-20] MEDS: AZITHROMYCIN 500 MG in DEXTROSE 5% IN WATER 250 ML IV SCH (13:21)
[2020-05-20] MEDS: GABAPENTIN 300 MG CAPSULE PO SCH ×3 (13:44→23:34)
--- NOTE | 2020-05-20 15:08 | Internal Med Progress Note ---
SUBJECTIVE Subjective Patient information: Note initiated : 05/20/20 at 2:52 pm Service Date, if different from initiated Date: [] Patient: Valerie Garay a 60 y/o F admitted on 05/19/20 for Shortness of breath. Chief Complaint: [] Interval history: Ms. Garay is a 60 year old F with a history anxiety disorder who fell roughly 11 days ago landing on her left side and fractured rib. Over the next few days patient noted increasing shortness of breath/cough and symptoms she felt were like pneumonia, she noted progressive dyspnea limiting her functionality and activities day living. She presented to the ER with above concerns. Initial work-up was consistent with acute rib fractures/widespread bilateral chest infiltrates consistent with pneumonia. Hospitalist service was consulted. I could not see a COVID-19 test and hence ordered. At the patient was started on antibiotic coverage. At the time of my evaluation patient is anxious. She endorses symptoms as above. She denies purulent cough/diarrhea/fever/shaking chills but endorses to weak ness from and body aches. She does not want to meet anybody in appears withdrawn. She is however nondistressed and maintaining sats around 90% on room air. She remains tachycardic with a low-grade fever of 100.3. She denies sick contacts or travel outside of the [place] 05/20-patient seen in room. Reluctant to talk. However complains of persistent dyspnea. Currently on room air. Ongoing antibiotics coverage for community- acquired pathogen. Refused physical therapy this morning. White count 7.8, cancel CT chest as remains on room air no clinical duration. COVID-19 negative. Nutrition support Constitutional Vitals: Vital Signs Temp Pulse Resp BP Pulse Ox 98.6 F 107 H 20 139/86 91 05/20/20 11:38 05/20/20 11:38 05/20/20 11:38 05/20/20 11:38 05/20/20 11:38 Period Temp Pulse Resp BP Sys/Whalen Pulse Ox Last 24 Hr 98.0 F-100.3 F 94-115 18-22 115-186/60-109 90-96 Intake and Output 05/20/20 05/20/20 05/20/20 05:59 13:59 21:59 Intake Total 545 115 250 Output Total 300 1650 Balance 245 -1535 250 Intake & Output: Intake & Output 05/20/20 05/20/20 05/20/20 05:59 13:59 21:59 Intake Total 545 115 250 Output Total 300 1650 Balance 245 -1535 250 Intake: IV 65 115 250 Zithromax 500 mg In Dextrose 5% 0 250 in Water 250 ml @ 250 mls/hr IV DAILY [facility] Rx#:[id number] Rocephin 2 gm In Dextrose 5% in 50 Water 50 ml @ 100 mls/hr IV DAILY [facility] Rx#:[id number] Oral 480 0 Output: Void Amount 300 1650 Other: Urine Appearance Clear Clear Urine Color Bright Yellow Pale Urine Odor Normal Normal # Voids 2 Exam: General: Alert, Awake, No acute Distress, obese Eyes/N/T: EOMI, Head/Neck: neck supple, CV: RRR, No murmurs, Pulm: b/l, no wheezing Abd: soft, nontender, +BS x4 Ext: no clubbing/cyanosis , edema Neuro: Alert, no focal deficits, moves all extremities, Skin: warm/dry OBJ DATA Labs CBC & Chem 7: 05/20/20 05:23 05/20/20 05:23 Labs: Abnormal Lab Results 05/20/20 05/20/20 05/19/20 05:23 05:23 22:12 RBC 3.42 L Hgb 10.8 L Hct 33.4 L MPV 10.9 H Neut % (Auto) 81.1 H Lymph % (Auto) 11.9 L Lymph # (Auto) 0.92 L Absolute Neutrophils D-Dimer GGT 133 H Alkaline Phosphatase 209 H Lactate Dehydrogenase 386 H NT-Pro-B Natriuret Pep Triglycerides 240 H Procalcitonin 0.23 H 05/19/20 05/19/20 05/19/20 18:35 18:35 18:35 RBC 3.96 L Hgb Hct MPV 11.3 H Neut % (Auto) 83.8 H Lymph % (Auto) 10.1 L Lymph # (Auto) 1.02 L Absolute Neutrophils 8.50 H D-Dimer 1.11 H GGT Alkaline Phosphatase 246 H Lactate Dehydrogenase NT-Pro-B Natriuret Pep 1547.0 H Triglycerides Procalcitonin Meds: Medications Acetaminophen (Acetaminophen 325 Mg Tablet) 650 mg PO Q4-6HP PRN; Protocol PRN Reason: Per Pain Protocol/Fever > 101 Albuterol Sulfate (Albuterol Sulfate 200 Puff Inhaler) 1 puff INH Q4-6HP PRN PRN Reason: Chest Pain Albuterol/Ipratropium (Ipratropium/Albuterol 3 Ml Ampul.Neb) 3 ml NEB Q4HP PRN PRN Reason: Shortness Of Breath Aspirin (Aspirin 81 Mg Tab.Chew) 81 mg PO DAILY [facility] Last Admin: 05/20/20 08:10 Dose: 81 mg Documented by: Atorvastatin Calcium (Atorvastatin 20 Mg Tablet) 40 mg PO DAILY [facility] Last Admin: 05/20/20 08:09 Dose: 40 mg Documented by: Bisacodyl (Bisacodyl 10 Mg Supp.Rect) [address] Q2-3DAYS PRN PRN Reason: Constipation Docusate Sodium (Docusate Sodium 100 Mg Capsule) 100 mg PO BID [facility] Last Admin: 05/20/20 08:31 Dose: Not Given Documented by: Furosemide (Furosemide 40 Mg/4 Ml Vial) 40 mg IV DAILY [facility] Last Admin: 05/20/20 08:12 Dose: 40 mg Documented by: Gabapentin (Gabapentin 300 Mg Capsule) 300 mg PO QIDP [facility] Last Admin: 05/20/20 13:44 Dose: 300 mg Documented by: Heparin Sodium (Porcine) (Heparin 5,000 Unit/Ml Vial) 5,000 unit SQ Q12 [facility] Last Admin: 05/20/20 08:12 Dose: 5,000 unit Documented by: Hydralazine HCl (Hydralazine 20 Mg/Ml Vial) 10 mg IV Q4-6HP PRN PRN Reason: Hypertension Azithromycin 500 mg/ Dextrose 250 mls @ 250 mls/hr IV DAILY [facility]; Protocol Stop: 05/21/20 09:59 Last Infusion: 05/20/20 14:21 Dose: Infused Documented by: Potassium Chloride 40 meq/ (Dextrose) 520 mls @ 130 mls/hr IV UD PRN PRN Reason: K+ = or < 3.5 Acetaminophen (Ofirmev) 650 mg in 65 mls @ 130 mls/hr IV Q6HP PRN; Protocol PRN Reason: Per Pain Protocol/Fever > 101 Last Infusion: 05/20/20 12:24 Dose: Infused Documented by: Magnesium Sulfate (Magnesium Sulfate) 2 gm in 50 mls @ 50 mls/hr IV UD PRN PRN Reason: MG = or < 1.7 Ceftriaxone Sodium 2 gm/ (Dextrose) 50 mls @ 100 mls/hr IV DAILY [facility]; Protocol Last Infusion: 05/20/20 13:13 Dose: Infused Documented by: Iron Carb/Multivit/[place]/Folic Acid (Multivit,Ther Iron,Ca,Fa & Min 1 Tablet) 1 tab PO DAILY [facility] Last Admin: 05/20/20 08:09 Dose: 1 tab Documented by: Levothyroxine Sodium (Levothyroxine 75 Mcg Tablet) 75 mcg PO QAMAC [facility] Last Admin: 05/20/20 08:10 Dose: 75 mcg Documented by: Lidocaine (Lidocaine Patch) 1 patch TOPICAL DAILY@1000 [facility] Last Admin: 05/20/20 10:43 Dose: 1 patch Documented by: Melatonin (Melatonin 3 Mg Tablet) 3 mg PO HSP PRN PRN Reason: Insomnia Metoprolol Tartrate (Metoprolol Tartrate 5 Mg/5 Ml Vial) 5 mg IV Q5M PRN PRN Reason: Heart Rate > 140 bpm Omeprazole (Omeprazole 20 Mg Capsule) 40 mg PO BIDAC [facility] Last Admin: 05/20/20 08:10 Dose: 40 mg Documented by: Ondansetron HCl (Ondansetron 4 Mg Odt Tablet) 4 mg SL Q4-6HP PRN; Protocol PRN Reason: Nausea And Vomiting Ondansetron HCl (Ondansetron 4 Mg/2 Ml Vial) 4 mg IV Q4-6HP PRN; Protocol PRN Reason: Nausea And Vomiting Oxycodone/Acetaminophen (Oxycodone/Apap 5/325mg Tablet) 1 tab PO Q6HP PRN; Protocol PRN Reason: Per Pain Protocol Paroxetine HCl (Paroxetine 20 Mg Tablet) 40 mg PO DAILY [facility] Last Admin: 05/20/20 08:10 Dose: 40 mg Documented by: Polyethylene Glycol (Polyethylene Glycol 3350 17 Gm Packet) 17 gm PO DAILYP PRN PRN Reason: Constipation Potassium Chloride (Potassium Chloride 20 Meq Packet) 40 meq PO DAILYP PRN PRN Reason: K+ < 3.5 Quetiapine Fumarate (Quetiapine 100 Mg Tablet) 200 mg PO [facility] Last Admin: 05/19/20 22:45 Dose: 200 mg Documented by: Senna/Docusate Sodium (Sennosides/Docusate Sodium 1 Tab Tablet) 1 tab PO [facility] Sodium Chloride (0.9 % Sodium Chloride 10 Ml Syringe) 10 ml IV Q8 [facility] Last Admin: 05/20/20 13:04 Dose: Not Given Documented by: A/P Narrative A/P Narrative: A: *CAP, b/l: improving -COVID-19 negative *Acute on chronic diastolic CHF *Dyspnea: 2/2 above -Currently on room air maintain sats around 90% *Left sixth/seventh rib fracture w/pleurisy: from GLF *h/o CAD w/stent: on ASA/Statin *Anxiety d/o: continue paroxetine/quetiapine *Reactive airway disease: continue bronchodilators *chronic pain: on hydrocodone *Hypothyroidism: continue thyroxine *GERD: continue PPI *obesity PLAN: -Antibiotic coverage (azithro/rocephin) -Echocardiogram updated pending -lasix 40 iv dialy -Continue pulmonary toilet, pain management/lidocaine/scheduled Tylenol/capsaicin gel -cont home ASA/statin and psych meds -PT OT nutrition support -Discharge planning -ppx: heparin/home ppi Time Spent With Patient Time: Total time spent is greater than 50% in coordination of care (as documented) at patient's floor/unit and/or counseling patient: QUALITY Stroke Symptom Onset Unknown: No VTE Deep Vein Thrombosis/Pulmonary Embolism Present on Admission: No
[2020-05-20] MEDS: oxyCODONE/APAP 5/325MG TABLET PO PRN ×2 (17:16→23:34)
[2020-05-20] MEDS: SENNOSIDES/DOCUSATE SODIUM 1 TAB TABLET PO SCH (19:58)
[2020-05-20] MEDS: QUEtiapine 100 MG TABLET PO SCH (20:06)
[2020-05-21] MEDS: 0.9 % SODIUM CHLORIDE 10 ML SYRINGE IV SCH ×4 (04:26→20:43)
[2020-05-21] MEDS: ACETAMINOPHEN 650 MG/65 ML BAG IV PRN ×2 (04:27→18:22)
[2020-05-21] MEDS: GABAPENTIN 300 MG CAPSULE PO SCH ×4 (06:03→20:43)
[2020-05-21] MEDS: oxyCODONE/APAP 5/325MG TABLET PO PRN ×3 (06:04→19:26)
[2020-05-21 07:03] LABS: ALT/SGPT 5 U/L (<40); AST/SGOT 11 U/L (<32); Albumin 3.3 gm/dL (3.2-5.2); Albumin/Globulin Ratio 1.1 (1.0-2.3); Alkaline Phosphatase 215 U/L (39-117); Bilirubin,Direct < 0.2 mg/dL (0-0.3); Bilirubin,Total 0.2 mg/dL (0.1-1.0); Blood Urea Nitrogen 14 mg/dL (6-20); Calcium 8.8 mg/dL (8.6-10.4); Carbon Dioxide 26 mmol/L (22-30); Chloride 97 mmol/L (96-108); Glomerular Filtration Rate 100; Glucose 100 mg/dL (70-105); Lactate Dehydrogenase 361 U/L (135-225); Phosphorous 3.3 mg/dL (2.5-4.5); Triglycerides 329 mg/dL (<150); Uric Acid 5.1 mg/dL (2.5-8.0)
[2020-05-21] MEDS: LEVOTHYROXINE 75 MCG TABLET PO SCH (07:28)
[2020-05-21] MEDS: OMEPRAZOLE 20 MG CAPSULE PO SCH ×2 (07:28→17:03)
--- NOTE | 2020-05-21 07:32 | Internal Med Progress Note ---
SUBJECTIVE Subjective Patient information: Note initiated : 05/21/20 at 7:28 am Service Date, if different from initiated Date: [] Patient: Valerie Garay a 60 y/o F admitted on 05/19/20 for Shortness of breath. Chief Complaint: [] Interval history: Ms. Garay is a 60 year old F with a history anxiety disorder who fell roughly 11 days ago landing on her left side and fractured rib. Over the next few days patient noted increasing shortness of breath/cough and symptoms she felt were like pneumonia, she noted progressive dyspnea limiting her functionality and activities day living. She presented to the ER with above concerns. Initial work-up was consistent with acute rib fractures/widespread bilateral chest infiltrates consistent with pneumonia. Hospitalist service was consulted. I could not see a COVID-19 test and hence ordered. At the patient was started on antibiotic coverage. At the time of my evaluation patient is anxious. She endorses symptoms as above. She denies purulent cough/diarrhea/fever/shaking chills but endorses to weak ness from and body aches. She does not want to meet anybody in appears withdrawn. She is however nondistressed and maintaining sats around 90% on room air. She remains tachycardic with a low-grade fever of 100.3. She denies sick contacts or travel outside of the [place] 05/20-patient seen in room. Reluctant to talk. However complains of persistent dyspnea. Currently on room air. Ongoing antibiotics coverage for community- acquired pathogen. Refused physical therapy this morning. White count 7.8, cancel CT chest as remains on room air no clinical duration. COVID-19 negative. Nutrition support 05/21 Complains of left-sided chest pain over the rib fractures, headache. No other complaints. Review of Systems: denies fever/chills/nausea/vomiting/chest or abdominal pain//diarrhea. Other cates see above. Constitutional Vitals: Vital Signs Temp Pulse Resp BP Pulse Ox 99.0 F 89 14 130/67 92 05/21/20 04:26 05/21/20 04:26 05/21/20 04:26 05/21/20 04:26 05/21/20 04:26 Period Temp Pulse Resp BP Sys/[place] Pulse Ox Last 24 Hr 97.9 F-99.0 F 89-107 14- 129-146/67-86 90-92 Intake and Output 05/20/20 05/21/20 05/21/20 21:59 05:59 13:59 Intake Total 250 715 Balance 250 715 Weight 89.584 kg Intake & Output: Intake & Output 05/20/20 05/21/20 05/21/20 21:59 05:59 13:59 Intake Total 250 715 Balance 250 715 Weight 89.584 kg Intake: IV 250 65 Zithromax 500 mg In Dextrose 5% 250 in Water 250 ml @ 250 mls/hr IV DAILY [facility] Rx#:[id number] Oral 650 Other: # Voids 1 Exam: General: Alert, Awake, No acute Distress, obese Eyes/N/T: EOMI, Head/Neck: neck supple, CV: RRR, No murmurs, Pulm: diminished b/l, no wheezing/rhonchi Abd: soft, nontender, +BS x4 Ext: no clubbing/cyanosis, trace b/l LE edema Neuro: Alert, no focal deficits, moves all extremities, Skin: warm/dry OBJ DATA Labs CBC & Chem 7: 05/20/20 05:23 05/21/20 05:12 Labs: Abnormal Lab Results 05/21/20 05/21/20 05/20/20 05:12 05:11 05:23 RBC Hgb Hct MPV Neut % (Auto) Lymph % (Auto) Lymph # (Auto) Absolute Neutrophils D-Dimer GGT 144 H 133 H Alkaline Phosphatase 215 H 209 H Lactate Dehydrogenase 361 H 386 H NT-Pro-B Natriuret Pep 1093.0 H Triglycerides 329 H 240 H Procalcitonin 05/20/20 05/19/20 05/19/20 05:23 22:12 18:35 RBC 3.42 L Hgb 10.8 L Hct 33.4 L MPV 10.9 H Neut % (Auto) 81.1 H Lymph % (Auto) 11.9 L Lymph # (Auto) 0.92 L Absolute Neutrophils D-Dimer GGT Alkaline Phosphatase 246 H Lactate Dehydrogenase NT-Pro-B Natriuret Pep 1547.0 H Triglycerides Procalcitonin 0.23 H 05/19/20 05/19/20 18:35 18:35 RBC 3.96 L Hgb Hct MPV 11.3 H Neut % (Auto) 83.8 H Lymph % (Auto) 10.1 L Lymph # (Auto) 1.02 L Absolute Neutrophils 8.50 H D-Dimer 1.11 H GGT Alkaline Phosphatase Lactate Dehydrogenase NT-Pro-B Natriuret Pep Triglycerides Procalcitonin Meds: Medications Acetaminophen (Acetaminophen 325 Mg Tablet) 650 mg PO Q4-6HP PRN; Protocol PRN Reason: Per Pain Protocol/Fever > 101 Albuterol Sulfate (Albuterol Sulfate 200 Puff Inhaler) 1 puff INH Q4-6HP PRN PRN Reason: Chest Pain Albuterol/Ipratropium (Ipratropium/Albuterol 3 Ml Ampul.Neb) 3 ml NEB Q4HP PRN PRN Reason: Shortness Of Breath Aspirin (Aspirin 81 Mg Tab.Chew) 81 mg PO DAILY [facility] Last Admin: 05/20/20 08:10 Dose: 81 mg Documented by: Atorvastatin Calcium (Atorvastatin 20 Mg Tablet) 40 mg PO DAILY [facility] Last Admin: 05/20/20 08:09 Dose: 40 mg Documented by: Bisacodyl (Bisacodyl 10 Mg Supp.Rect) 10 mg PA Q2-3DAYS PRN PRN Reason: Constipation Docusate Sodium (Docusate Sodium 100 Mg Capsule) 100 mg PO BID [facility] Last Admin: 05/20/20 19:58 Dose: Not Given Documented by: Furosemide (Furosemide 40 Mg/4 Ml Vial) 40 mg IV DAILY [facility] Last Admin: 05/20/20 08:12 Dose: 40 mg Documented by: Gabapentin (Gabapentin 300 Mg Capsule) 300 mg PO QIDP [facility] Last Admin: 05/21/20 06:03 Dose: 300 mg Documented by: Heparin Sodium (Porcine) (Heparin 5,000 Unit/Ml Vial) 5,000 unit SQ Q12 [facility] Last Admin: 05/20/20 20:06 Dose: 5,000 unit Documented by: Hydralazine HCl (Hydralazine 20 Mg/Ml Vial) 10 mg IV Q4-6HP PRN PRN Reason: Hypertension Azithromycin 500 mg/ Dextrose 250 mls @ 250 mls/hr IV DAILY [facility]; Protocol Stop: 05/21/20 09:59 Last Infusion: 05/20/20 14:21 Dose: Infused Documented by: Potassium Chloride 40 meq/ (Dextrose) 520 mls @ 130 mls/hr IV UD PRN PRN Reason: K+ = or < 3.5 Acetaminophen (Ofirmev) 650 mg in 65 mls @ 130 mls/hr IV Q6HP PRN; Protocol PRN Reason: Per Pain Protocol/Fever > 101 Last Admin: 05/21/20 04:27 Dose: 130 mls/hr Documented by: Magnesium Sulfate (Magnesium Sulfate) 2 gm in 50 mls @ 50 mls/hr IV UD PRN PRN Reason: MG = or < 1.7 Ceftriaxone Sodium 2 gm/ (Dextrose) 50 mls @ 100 mls/hr IV DAILY [facility]; Protocol Last Infusion: 05/20/20 13:13 Dose: Infused Documented by: Iron Carb/Multivit/[place]/Folic Acid (Multivit,Ther Iron,Ca,Fa & Min 1 Tablet) 1 tab PO DAILY [facility] Last Admin: 05/20/20 08:09 Dose: 1 tab Documented by: Levothyroxine Sodium (Levothyroxine 75 Mcg Tablet) 75 mcg PO QAMAC [facility] Last Admin: 05/20/20 08:10 Dose: 75 mcg Documented by: Lidocaine (Lidocaine Patch) 1 patch TOPICAL DAILY@1000 [facility] Last Admin: 05/20/20 10:43 Dose: 1 patch Documented by: Melatonin (Melatonin 3 Mg Tablet) 3 mg PO HSP PRN PRN Reason: Insomnia Metoprolol Tartrate (Metoprolol Tartrate 5 Mg/5 Ml Vial) 5 mg IV Q5M PRN PRN Reason: Heart Rate > 140 bpm Omeprazole (Omeprazole 20 Mg Capsule) 40 mg PO BIDAC [facility] Last Admin: 05/20/20 16:40 Dose: 40 mg Documented by: Ondansetron HCl (Ondansetron 4 Mg Odt Tablet) 4 mg SL Q4-6HP PRN; Protocol PRN Reason: Nausea And Vomiting Ondansetron HCl (Ondansetron 4 Mg/2 Ml Vial) 4 mg IV Q4-6HP PRN; Protocol PRN Reason: Nausea And Vomiting Oxycodone/Acetaminophen (Oxycodone/Apap 5/325mg Tablet) 1 tab PO Q6HP PRN; Protocol PRN Reason: Per Pain Protocol Last Admin: 05/21/20 06:04 Dose: 1 tab Documented by: Paroxetine HCl (Paroxetine 20 Mg Tablet) 40 mg PO DAILY [facility] Last Admin: 05/20/20 08:10 Dose: 40 mg Documented by: Polyethylene Glycol (Polyethylene Glycol 3350 17 Gm Packet) 17 gm PO DAILYP PRN PRN Reason: Constipation Potassium Chloride (Potassium Chloride 20 Meq Packet) 40 meq PO DAILYP PRN PRN Reason: K+ < 3.5 Quetiapine Fumarate (Quetiapine 100 Mg Tablet) 200 mg PO HS [facility] Last Admin: 05/20/20 20:06 Dose: 200 mg Documented by: Senna/Docusate Sodium (Sennosides/Docusate Sodium 1 Tab Tablet) 1 tab PO [facility] Last Admin: 05/20/20 19:58 Dose: Not Given Documented by: Sodium Chloride (0.9 % Sodium Chloride 10 Ml Syringe) 10 ml IV Q8 [facility] Last Admin: 05/21/20 04:26 Dose: 10 ml Documented by: A/P Narrative A/P Narrative: A: *CAP, b/l: improving -COVID-19 negative *Acute on chronic diastolic CHF: improving *Dyspnea: 2/2 above -Currently on room air maintain sats above 90% *Rib Fx (Left sixth/seventh) w/pleurisy: from GLF *h/o CAD w/stent: on ASA/Statin *Anxiety d/o: continue paroxetine/quetiapine *Reactive airway disease: continue bronchodilators *chronic pain: on hydrocodone *Hypothyroidism: continue thyroxine *GERD: continue PPI *obesity PLAN: -Antibiotic coverage (azithro/rocephin) -Echocardiogram updated pending -lasix 40 iv daily -Continue pulmonary toilet, pain management/lidocaine/scheduled Tylenol/capsaicin gel -cont home ASA/statin and psych meds -PT OT nutrition support -Discharge planning -ppx: heparin/home ppi Time Spent With Patient Time: Total time spent is greater than 50% in coordination of care (as documented) at patient's floor/unit and/or counseling patient: QUALITY Stroke Symptom Onset Unknown: No VTE Deep Vein Thrombosis/Pulmonary Embolism Present on Admission: No
[2020-05-21] MEDS: morphine 2 MG/ML VIAL IV PRN ×2 (09:58→10:41)
[2020-05-21] MEDS: HEPARIN 5,000 UNIT/ML VIAL SQ SCH ×2 (09:59→19:25)
[2020-05-21] MEDS: FUROSEMIDE 40 MG/4 ML VIAL IV SCH (09:59)
[2020-05-21] MEDS: ATORVASTATIN 20 MG TABLET PO SCH (10:21)
[2020-05-21] MEDS: cefTRIAXone 2 GM in DEXTROSE 5% IN WATER 50 ML IV SCH (10:22)
[2020-05-21] MEDS: DOCUSATE SODIUM 100 MG CAPSULE PO SCH ×2 (10:22→19:26)
[2020-05-21] MEDS: PARoxetine 20 MG TABLET PO SCH (10:22)
[2020-05-21] MEDS: MULTIVIT,THER IRON,CA,FA & MIN 1 TABLET PO SCH (10:22)
[2020-05-21] MEDS: ASPIRIN 81 MG TAB.CHEW PO SCH (10:22)
[2020-05-21] MEDS: LIDOCAINE PATCH TOPICAL SCH (10:24)
--- NOTE | 2020-05-21 10:42 | XRay Report ---
CLINICAL INFORMATION: pneumonia /SOB COMPARISON: 05/19/2020 FINDINGS: Borderline cardiomegaly unchanged. Mediastinum and pulmonary vessels are normal. Bilateral infiltrates have improved considerably from the exam two days prior. There is mild residual in the peripheral mid and lower lungs.. No effusion. IMPRESSION: Considerable improvement in bilateral infiltrates with mild residual in the peripheral mid and lower lungs. Consider: infection, ARDS or aspiration Interpreted and Authenticated by: Han Yee 05/21/20
[2020-05-21] MEDS: AZITHROMYCIN 500 MG in DEXTROSE 5% IN WATER 250 ML IV SCH (10:46)
--- NOTE | 2020-05-21 11:05 | Discharge Summary ---
Discharge Provider Provider Patient information: Note initiated : 05/21/20 at 11:03 am Service Date, if different from initiated Date: [] Patient: Valerie Garay 60 y/o F admitted on 05/19/20 for Shortness of breath. Chief Complaint: [] Date of admission: 05/19/20 21:49 Discharge date: 05/22/20 Primary care physician: Unknown Unknown Consults: 05/19/20 Consult to Physician [CONS] Stat Comment: Consulting Provider: Travis Rock Reason For Exam: Physician to Consult Discharge Meds Discharge Medications Home Medications omeprazole 40 mg PO BID 11/30/17 [History Confirmed 05/19/20 Last Taken 05/19/20 05:00 40 mg] paroxetine HCl [Paxil] 40 mg PO DAILY 11/30/17 [History Confirmed 05/19/20 Last Taken 05/19/20 05:00 40 mg] quetiapine 200 mg PO HS 11/30/17 [History Confirmed 05/19/20 Last Taken 05/18/20 21:00 200 mg] gabapentin 300 mg PO QIDP 12/31/17 [History Confirmed 05/19/20 Last Taken 05/19/20 15:00 300 mg] albuterol sulfate 1 puff INH Q4-6HP PRN 05/10/19 [History Confirmed 05/19/20 Last Taken Unknown] aspirin 81 mg PO DAILY 05/10/19 [History Confirmed 05/19/20 Last Taken 05/19/20 05:00 81 MG] levothyroxine 75 mcg PO DAILY 05/10/19 [History Confirmed 05/19/20 Last Taken 05/19/20 05:00 75 mcg] rosuvastatin 20 mg PO DAILY 05/10/19 [History Confirmed 05/19/20 Last Taken 05/19/20 05:00 20 mg] lidocaine 1 patch TOPICAL DAILY@1000 #4 ea 05/21/20 [Rx Last Taken Unknown] oxycodone-acetaminophen 1 tab PO Q6HP PRN #20 tab 05/21/20 [Rx Last Taken Unknown] levofloxacin 750 mg PO Q24H #2 tab 05/22/20 [Rx Last Taken Unknown] COURSE Hospital Course Hospital course: Interval history: Ms. Garay is a 60 year old F with a history anxiety disorder who fell roughly 11 days ago landing on her left side and fractured rib. Over the next few days patient noted increasing shortness of breath/cough and symptoms she felt were like pneumonia, she noted progressive dyspnea limiting her functionality and activities day living. She presented to the ER with above concerns. Initial work-up was consistent with acute rib fractures/widespread bilateral chest infiltrates consistent with pneumonia. Hospitalist service was consulted. I could not see a COVID-19 test and hence ordered. At the patient was started on antibiotic coverage. At the time of my evaluation patient is anxious. She endorses symptoms as above. She denies purulent cough/diarrhea/fever/shaking chills but endorses to weakness from and body aches. She does not want to meet anybody in appears withdrawn. She is however nondistressed and maintaining sats around 90% on room air. She remains tachycardic with a low-grade fever of 100.3. She denies sick contacts or travel outside of the [place] 05/20-patient seen in room. Reluctant to talk. However complains of persistent dyspnea. Currently on room air. Ongoing antibiotics coverage for community- acquired pathogen. Refused physical therapy this morning. White count 7.8, cancel CT chest as remains on room air no clinical duration. COVID-19 negative. Nutrition support 05/21 Complains of left-sided chest pain over the rib fractures, headache. No other complaints. 05/22 Patient doing well. On room air. Desiring to go home. A: *CAP, b/l: improving -COVID-19 negative *Acute on chronic diastolic CHF: improving *Dyspnea: 2/2 above -Currently on room air maintain sats above 90% *Rib Fx (Left sixth/seventh) w/pleurisy: from GLF *h/o CAD w/stent: on ASA/Statin *Anxiety d/o: continue paroxetine/quetiapine *Reactive airway disease: continue bronchodilators *chronic pain: on hydrocodone *Hypothyroidism: continue thyroxine *GERD: continue PPI *obesity Discharge diagnosis: Pneumonia CHF rib fractures Reason for admission: CAD anxiety reactive airway chronic pain hypothyroidism GERD obesity Time Spent with Patient Time attestation: Total time spent providing and/or coordinating discharge services: Time spent: Greater than 30 minutes EXAM Constitutional Vitals: Temp Pulse Resp BP Pulse Ox 97.8 F 98 H 20 115/58 91 05/21/20 09:00 05/21/20 09:00 05/21/20 09:00 05/21/20 09:00 05/21/20 09:00 Discharge Data Data Completed and Pending Labs on day of discharge: Labs from last 24 hours 05/21/20 05/21/20 05/20/20 05:12 05:11 12:15 Sodium 134 Potassium 3.7 Chloride 97 Carbon Dioxide 26 Anion Gap 11.0 BUN 14 Creatinine 0.6 GFR Calculation 100 Glucose 100 Uric Acid 5.1 Calcium 8.8 Phosphorus 3.3 Magnesium 2.0 Total Bilirubin 0.2 Direct Bilirubin < 0.2 GGT 144 H AST 11 ALT 5 Alkaline Phosphatase 215 H Lactate Dehydrogenase 361 H NT-Pro-B Natriuret Pep 1093.0 H Total Protein 6.3 Albumin 3.3 Globulin 3.0 Albumin/Globulin Ratio 1.1 Triglycerides 329 H Ur Strep pneumoniae Ag Negative Preliminary micro results at discharge 05/19/20 19:10 Blood Culture - Preliminary Blood 05/19/20 18:53 Blood Culture - Preliminary Blood Discharge Plan Patient/Caregiver Discharge Instructions Activity: increase activity as tolerated and as instructed Diet: Regular Diet Activity Restrictions/Additional Instructions: Patient to be admitted for pneumonia and congestive heart failure f/u with PCP 3-7 days. Prescriptions: New oxycodone-acetaminophen 5-325 mg Tablet 1 tab PO Q6HP PRN (Reason: Per Pain Protocol) Qty: 20 RF: 0 lidocaine 5 % Adhesive Patch,Medicated 1 patch topical DAILY@1000 Qty: 4 RF: 0 levofloxacin 750 mg tablet 750 mg PO Q24H Qty: 2 RF: 0 Continued quetiapine 100 MG tablet 200 mg PO HS RF: 0 paroxetine HCl [Paxil] 20 MG tablet 40 mg PO DAILY RF: 0 omeprazole 20 MG capsule,delayed release(DR/EC) 40 mg PO BID RF: 0 gabapentin 300 MG capsule 300 mg PO QIDP RF: 0 aspirin 81 MG tablet,delayed release (DR/EC) 81 mg PO DAILY RF: 0 levothyroxine 50 MCG tablet 75 mcg PO DAILY RF: 0 rosuvastatin 10 MG tablet 20 mg PO DAILY RF: 0 albuterol sulfate 1 PUFF inhaler 1 puff INH Q4-6HP PRN (Reason: Chest Pain) RF: 0 Discontinued hydrocodone-acetaminophen 5-325 mg tablet 1 tab PO Q6H PRN (Reason: pain) Qty: 30 RF: 0 Follow Up Plan Follow up with: Unknown,Unknown [Primary Care Provider] - Patient Disposition: Home, Self-Care Prognosis: Fair Overall status at discharge: patient is progressing back to baseline Discharge Orders: Discharge Order (Routine); Ordered 05/22/20 Ordered By: Jimy Ash [facility] VTE Deep Vein Thrombosis/Pulmonary Embolism Present on Admission: No
[2020-05-21] MEDS ORDERED: LORazepam 2 MG/ML VIAL IV PRN (13:13)
[2020-05-21] MEDS: QUEtiapine 100 MG TABLET PO SCH (19:25)
[2020-05-21] MEDS: SENNOSIDES/DOCUSATE SODIUM 1 TAB TABLET PO SCH (20:43)
[2020-05-22] MEDS: oxyCODONE/APAP 5/325MG TABLET PO PRN ×2 (01:24→07:35)
[2020-05-22] MEDS: 0.9 % SODIUM CHLORIDE 10 ML SYRINGE IV SCH (05:14)
[2020-05-22] MEDS: ACETAMINOPHEN 650 MG/65 ML BAG IV PRN (05:59)
[2020-05-22] MEDS: OMEPRAZOLE 20 MG CAPSULE PO SCH (07:34)
[2020-05-22] MEDS: LEVOTHYROXINE 75 MCG TABLET PO SCH (07:35)
[2020-05-22] MEDS: FUROSEMIDE 40 MG/4 ML VIAL IV SCH (09:38)
[2020-05-22] MEDS: cefTRIAXone 2 GM in DEXTROSE 5% IN WATER 50 ML IV SCH (09:38)
[2020-05-22] MEDS: MULTIVIT,THER IRON,CA,FA & MIN 1 TABLET PO SCH (09:39)
[2020-05-22] MEDS: PARoxetine 20 MG TABLET PO SCH (09:39)
[2020-05-22] MEDS: ATORVASTATIN 20 MG TABLET PO SCH (09:39)
[2020-05-22] MEDS: ASPIRIN 81 MG TAB.CHEW PO SCH (09:39)
[2020-05-22] MEDS: GABAPENTIN 300 MG CAPSULE PO SCH (09:39)
[2020-05-22] MEDS: HEPARIN 5,000 UNIT/ML VIAL SQ SCH (09:40)
[2020-05-22] MEDS: DOCUSATE SODIUM 100 MG CAPSULE PO SCH (09:40)
[2020-05-22] MEDS: LIDOCAINE PATCH TOPICAL SCH (09:40)
[2020-05-22 10:46] LABS: Blood Urea Nitrogen 21 mg/dL (6-20); Calcium 9.2 mg/dL (8.6-10.4); Carbon Dioxide 27 mmol/L (22-30); Chloride 97 mmol/L (96-108); Glomerular Filtration Rate 95; Glucose 127 mg/dL (70-105)
== END 2020-05-22 11:55 | disposition home or self-care (01) | DRG 193 ==
LOC: ED 18:06 → MEDSUR 21:49
PROVIDERS: ADMIT Internal Medicine; ATTEND Internal Medicine